=== PATIENT | male | born 1980 | race Caucasian/White ===

== ENCOUNTER 2020-07-24 17:54 | Inpatient (IN) | payer MEDICAID, SELFPAY ==
[2020-07-24] VITALS (7 sets, daily range): BP systolic 94–136; BP diastolic 60–90; PULSE 85–136; RESP 16–28; O2SAT 73–96; BMI 26.6
--- NOTE | ~2020-07-24 | XR_ITS ---
EXAMINATION: XR CHEST CLINICAL INFORMATION: Shortness of breath with overdose COMPARISON: None TECHNIQUE: Frontal view of the chest was obtained. FINDINGS: A large area of consolidation is noted in the right upper lobe. No pleural effusions are seen. Some right basilar atelectasis may be present. The left lung is clear. The heart size is normal. XR/XR chest 1V IMPRESSION: Large area of consolidation present in the right upper lobe. This could be due to pneumonia or possibly aspiration.
--- NOTE | ~2020-07-24 | XR_ITS ---
EXAMINATION: XR BILATERAL HIPS WITH AP PELVIS CLINICAL INFORMATION: Pain COMPARISON: None TECHNIQUE: AP view of the pelvis and 2 views of each hip were obtained. FINDINGS: Bone alignment is normal. No fracture or dislocation is seen. The joint spaces are normal. Bones of the pelvis are normal. Soft tissues are normal. XR/XR hip BI w [id number] IMPRESSION: Unremarkable exam.
--- NOTE | 2020-07-24 18:12 | ED_ITS ---
HPI - Overdose General Chief Complaint: Overdose Stated Complaint: 0D Time Seen by Provider: 07/24/20 18:12 Source: EMS Mode of arrival: EMS Limitations: altered mental status History of Present Illness HPI Narrative: Patient was brought by EMS for overdose on heroin and other drugs was not breathing at scene bystander gave him 8 mg of Narcan intranasally EMS reached patient was cyanotic saturating 60% was given another 2 mg intranasally Narcan patient came here saturating 85% on 100% non-rebreather dozing off with shallow respiration ' , responded to 4 mg IV Narcan complaint: accidental overdose Onset (ago): minute(s) How Overdose Was Discovered: family/friend present at time Context: Accidental Overdose: wanted to get high Related Data Home Medications Medication Instructions Recorded Confirmed Unobtainable 07/24/20 07/24/20 Allergies Allergy/AdvReac Type Severity Reaction Status Date / Time No Known Allergies Allergy Verified 07/24/20 18:13 Review of Systems Review of Systems: Yes Unobtainable due to mental status Neurologic: Reports confusion Psychiatric: Psychiatric: Reports confusion [facility] Past Medical History Source: unable to obtain Social History Social History Advance Directives: No Advance Directives Information Provided: Yes Physical Exam Vital Signs: Vital Signs: Last Vital Signs Pulse 85 07/24/20 23:55 Resp 22 H 07/24/20 23:55 BP 95/67 07/24/20 23:55 Pulse Ox 93 07/24/20 23:55 Body Mass Index 26.6 Const: General: confusion, intoxicated appearing and lethargic [place] ation/consciousness: confusion and lethargic HENMT: Head: Yes normocephalic and Yes atraumatic Eyes: General: appearance normal, both eyes and all related structures Conjunctivae: conjunctivae normal Sclerae: sclerae normal Pupils: Pupil size comments (2 mm) bilaterally EOM: EOMs intact bilaterally Neck: Neck: Yes normal visual inspection, Yes full ROM and No midline deformity Chest: Chest palpation & inspection: normal inspection of the chest and normal palpation of entire chest wall Resp: Effort & Inspection: decreased respiratory effort Auscultation: clear to auscultation bilaterally Cardio: Jugular venous distension: no JVD Palpation: normal PMI Rate: regular rate Rhythm: regular rhythm Heart sounds: S1 normal heart sound present and S2 normal heart sound present Peripheral pulses: Peripheral pulses 2+ throughout GI: Inspection: Yes normal to inspection Palpation (GI): Soft to palpation and nontender Auscultation: normal bowel sounds : General: Yes no CVA tenderness Back/Spine/Pelvis: Back: no CVA tenderness Thoracic/Lumbar Spine: thoracic and lumbar spine normal to inspection Skin: General skin exam: no rashes or lesions noted Neuro: General: moves all extremities, no focal motor deficits and confusion Extrem: General: Yes normal to inspection, Yes no calf tenderness and No pedal edema MDM - Overdose MDM Narrative Medical decision making narrative: 1899: Patient more alert awake saturating 88% on 4 L chest x-ray showed right upper lobe consolidation likely aspiration.. On further interrogation patient said patient was in shelter for 5 months came out and today he took only 2 bags of heroin not any methadone did not take any other medication or drugs no fever or cough prior . Will admit patient for IV antibiotics patient's elevated troponin without any chest pain or EKG changes likely from renal failure and hypoxia Medical Records Attestation: I reviewed the patient's medical records. Lab Data Attestation: I reviewed the patient's lab results. Result diagrams: 07/24/20 19:02 07/24/20 22:57 Labs: Lab Results 07/24/20 07/24/20 07/24/20 Range/Units 19:02 19:02 19:02 WBC 22.7 H (4.8-10.8) X10*3/uL RBC 6.41 H (4.60-5.80) X10*6/uL Hgb 16.6 (14.0-18.0) g/dl Hct 54.2 H (42-52) % MCV 84.6 (80-98) fL MCH 25.9 L (27.0-33.0) pg MCHC 30.6 L (31.0-36.0) g/dl RDW 13.8 (11.0-16.0) % Plt Count 167 (160-400) X10*3/uL MPV 12.1 (9.4-12.4) fL Immature Gran % (Auto) Cancelled Neut % (Auto) Cancelled Lymph % (Auto) Cancelled Haines % (Auto) Cancelled Eos % (Auto) Cancelled Baso % (Auto) Cancelled Lymph # (Auto) Cancelled Haines # (Auto) Cancelled Eos # (Auto) Cancelled Baso # (Auto) Cancelled Abs Immat Gran (auto) Cancelled Absolute Neuts (auto) Cancelled Absolute Nucleated RBC 0.000 (0.0-0.012) X10*3/uL Nucleated RBC % (auto) 0.0 (0.0-0.2) /100WBC Neutrophils % (Manual) 70 (45-73) % Band Neutrophils % 12 H (3-5) % Lymphocytes % (Manual) 8 L (20-40) % Monocytes % (Manual) 6 (2-11) % Metamyelocytes % 4 % Abs Neuts (Manual) 18.6 H (2.2-7.9) X10*3/uL Lymphocytes # (Manual) 1.8 (0.6-4.8) X10*3/uL Monocytes # (Manual) 1.4 H (0.0-1.2) X10*3/uL Metamyelocytes # 0.9 X10*3/uL Platelet Estimate NORMAL (NORMAL) Plt Morphology Comment NORMAL RBC Morphology NORMAL PT 12.2 (10.8-13.0) SEC INR 1.0 (0.9-1.1) Sodium 144 (135-145) mmol/L Potassium 4.4 (3.3-5.1) mmol/L Chloride 106 (96-108) mmol/L Carbon Dioxide 16 L (22-29) mmol/L Anion Gap 26 H (12-20) BUN 18 H (9-16) mg/dL Creatinine 2.57 H (0.5-1.4) mg/dL Estim Creat Clear Calc 36.4 Estimated GFR 28 Random Glucose 102 (60-115) mg/dL Lactic Acid (0.5-2.0) mmol/L Calcium 9.2 (8.4-10.2) mg/dL Total Bilirubin 0.4 (0.0-1.0) mg/dL Direct Bilirubin 0.2 (0.0-0.5) mg/dL AST 58 H (5-37) U/L ALT 25 (0-40) U/L Alkaline Phosphatase 92 (39-117) U/L Troponin I High Sens (<3.5-35.0) ng/L Total Protein 8.1 H (6.5-8.0) g/dL Albumin 4.9 (3.5-5.0) g/dL Salicylates (15-30) mg/dL Acetaminophen (<30) mcg/mL Ethyl Alcohol mg/dL COVID-19 ([facility]) (Negative) COVID-19 Clin Com 07/24/20 07/24/20 07/24/20 Range/Units 19:02 19:02 19:02 WBC (4.8-10.8) X10*3/uL RBC (4.60-5.80) X10*6/uL Hgb (14.0-18.0) g/dl Hct (42-52) % MCV (80-98) fL MCH (27.0-33.0) pg MCHC (31.0-36.0) g/dl RDW (11.0-16.0) % Plt Count (160-400) X10*3/uL MPV (9.4-12.4) fL Immature Gran % (Auto) Neut % (Auto) Lymph % (Auto) Haines % (Auto) Eos % (Auto) Baso % (Auto) Lymph # (Auto) Haines # (Auto) Eos # (Auto) Baso # (Auto) Abs Immat Gran (auto) Absolute Neuts (auto) Absolute Nucleated RBC (0.0-0.012) X10*3/uL Nucleated RBC % (auto) (0.0-0.2) /100WBC Neutrophils % (Manual) (45-73) % Band Neutrophils % (3-5) % Lymphocytes % (Manual) (20-40) % Monocytes % (Manual) (2-11) % Metamyelocytes % % Abs Neuts (Manual) (2.2-7.9) X10*3/uL Lymphocytes # (Manual) (0.6-4.8) X10*3/uL Monocytes # (Manual) (0.0-1.2) X10*3/uL Metamyelocytes # X10*3/uL Platelet Estimate (NORMAL) Plt Morphology Comment RBC Morphology PT (10.8-13.0) SEC INR (0.9-1.1) Sodium (135-145) mmol/L Potassium (3.3-5.1) mmol/L Chloride (96-108) mmol/L Carbon Dioxide (22-29) mmol/L Anion Gap (12-20) BUN (9-16) mg/dL Creatinine (0.5-1.4) mg/dL Estim Creat Clear Calc Estimated GFR Random Glucose (60-115) mg/dL Lactic Acid (0.5-2.0) mmol/L Calcium (8.4-10.2) mg/dL Total Bilirubin (0.0-1.0) mg/dL Direct Bilirubin (0.0-0.5) mg/dL AST (5-37) U/L ALT (0-40) U/L Alkaline Phosphatase (39-117) U/L Troponin I High Sens 62.5 H (<3.5-35.0) ng/L Total Protein (6.5-8.0) g/dL Albumin (3.5-5.0) g/dL Salicylates < 5.0 L (15-30) mg/dL Acetaminophen < 1 (<30) mcg/mL Ethyl Alcohol < 10 mg/dL COVID-19 ([facility]) (Negative) COVID-19 Clin Com 07/24/20 07/24/20 Range/Units 19:39 20:22 WBC (4.8-10.8) X10*3/uL RBC (4.60-5.80) X10*6/uL Hgb (14.0-18.0) g/dl Hct (42-52) % MCV (80-98) fL MCH (27.0-33.0) pg MCHC (31.0-36.0) g/dl RDW (11.0-16.0) % Plt Count (160-400) X10*3/uL MPV (9.4-12.4) fL Immature Gran % (Auto) Neut % (Auto) Lymph % (Auto) Haines % (Auto) Eos % (Auto) Baso % (Auto) Lymph # (Auto) Haines # (Auto) Eos # (Auto) Baso # (Auto) Abs Immat Gran (auto) Absolute Neuts (auto) Absolute Nucleated RBC (0.0-0.012) X10*3/uL Nucleated RBC % (auto) (0.0-0.2) /100WBC Neutrophils % (Manual) (45-73) % Band Neutrophils % (3-5) % Lymphocytes % (Manual) (20-40) % Monocytes % (Manual) (2-11) % Metamyelocytes % % Abs Neuts (Manual) (2.2-7.9) X10*3/uL Lymphocytes # (Manual) (0.6-4.8) X10*3/uL Monocytes # (Manual) (0.0-1.2) X10*3/uL Metamyelocytes # X10*3/uL Platelet Estimate (NORMAL) Plt Morphology Comment RBC Morphology PT (10.8-13.0) SEC INR (0.9-1.1) Sodium (135-145) mmol/L Potassium (3.3-5.1) mmol/L Chloride (96-108) mmol/L Carbon Dioxide (22-29) mmol/L Anion Gap (12-20) BUN (9-16) mg/dL Creatinine (0.5-1.4) mg/dL Estim Creat Clear Calc Estimated GFR Random Glucose (60-115) mg/dL Lactic Acid 3.0 H* (0.5-2.0) mmol/L Calcium (8.4-10.2) mg/dL Total Bilirubin (0.0-1.0) mg/dL Direct Bilirubin (0.0-0.5) mg/dL AST (5-37) U/L ALT (0-40) U/L Alkaline Phosphatase (39-117) U/L Troponin I High Sens (<3.5-35.0) ng/L Total Protein (6.5-8.0) g/dL Albumin (3.5-5.0) g/dL Salicylates (15-30) mg/dL Acetaminophen (<30) mcg/mL Ethyl Alcohol mg/dL COVID-19 ([facility]) Negative (Negative) COVID-19 Clin Com See Note ECG Data Attestation: I personally reviewed and interpreted this ECG as follows: Interpretation: Sinus tachycardia heart rate 111 beats per minute early repolarization changes normal intervals normal axis no acute ischemia Discharge Plan Discharge Clinical Impression: Accidental heroin overdose Qualifiers: Encounter type: initial encounter Qualified Code(s): T40.1X1A - Poisoning by heroin, accidental (unintentional), initial encounter Pneumonia Qualifiers: Pneumonia type: aspiration pneumonia Aspiration pneumonia type: unspecified Laterality: right Lung location: upper lobe of lung Qualified Code(s): J69.0 - Pneumonitis due to inhalation of food and vomit Acute renal failure Qualifiers: Acute renal failure type: with acute tubular necrosis Qualified Code(s): N17.0 - Acute kidney failure with tubular necrosis Patient Disposition: Admitted As Inpatient
--- NOTE | 2020-07-24 18:13 | ECG_ITS ---
Test Reason : OVERDOSE Blood Pressure : / mmHG Vent. Rate : 111 BPM Atrial Rate : 111 BPM P-R Int : 138 ms QRS Dur : 090 ms QT Int : 350 ms P-R-T Axes : 069 071 060 degrees QTc Int : 476 ms Sinus tachycardia Early repolarization Otherwise normal ECG No previous ECGs available Referred By: Nick Melendez Electronically Signed By:BARBARA GARCIAS MD
[2020-07-24] MEDS: Naloxone HCl 2 MG/2 ML SYRINGE 4 MG IVPUSH (18:27)
[2020-07-24] MEDS: 0.9 % Sodium Chloride 1,000 ML 999 ML IVCONT ×3 (18:27→21:31)
--- NOTE | 2020-07-24 18:49 | PC.NURSE ---
technical solutions engineer at bedside for labs and EKG.
[2020-07-24 19:08] LABS: Hematocrit 54.2 % (42-52); Hemoglobin 16.6 g/dl (14.0-18.0); Mean Corpuscular HGB Conc 30.6 g/dl (31.0-36.0); Mean Corpuscular Hemoglobin 25.9 pg (27.0-33.0); Mean Corpuscular Volume 84.6 fL (80-98); Mean Platelet Volume 12.1 fL (9.4-12.4); Platelet Count 167 X10*3/uL (160-400); Red Blood Count 6.41 X10*6/uL (4.60-5.80); Red Cell Distribution Width 13.8 % (11.0-16.0)
[2020-07-24 19:10] LABS: WBC ABN SCTR FOR CBC 1
[2020-07-24 19:18] LABS: Prothrombin Time 12.2 SEC (10.8-13.0)
[2020-07-24 19:34] LABS: Ethanol < 10 mg/dL
[2020-07-24 19:37] LABS: Acetaminophen LAB < 1 mcg/mL (<30); Salicylate < 5.0 mg/dL (15-30)
--- NOTE | 2020-07-24 19:43 | MHC.RECOVSUP ---
Reason for consult: Overdose o Current location: ED 10 o Identified substance use concern: Opioid - Overdose <del>-</del> <del>Withdrawal</del> <del>-</del> <del>Seeking</del> <del>ATS</del> <del>(detox)</del> - Support ? Intervention: <del>o</del> <del>ATS</del> <del>bed</del> <del>search</del> <del>started/completed/in</del> <del>process</del> <del>o</del> <del>MAT</del> <del>started</del> <del>or</del> <del>to</del> <del>be</del> <del>started</del> o Community resources provided o Harm reduction discussion ? Plan: <del>o</del> <del>Referral</del> <del>to</del> <del>[facility]]</del> <del>o</del> <del>Bed</del> <del>search</del> <del>in</del> <del>progress</del> <del>to</del> <del>o</del> <del>Follow</del> <del>up</del> <del>tomorrow</del> <del>o</del> <del>Patient</del> <del>awaiting</del> <del>crisis</del> <del>evaluation</del> o Patient to follow up with [facility] after discharge ? Additional information: pt came in due to a heroin overdose. pt stated that today was the first time that he used after 5 months. when asked how he was able to maintain 5 months, pt stated that he was incarcerated. pt stated that he used 2 bags and overdosed here in [place]. pt is currently living with a friend and continues to face challenges with maintaining housing. he also stated that he is not on MAT and according to pt, does not have a history of mental health.I was not able to further engage in conversation with pt because he is currently in pain. pt was also told that he will admitted tonight.
[2020-07-24 19:45] LABS: Alanine Aminotransferase 25 U/L (0-40); Albumin Level 4.9 g/dL (3.5-5.0); Alkaline Phosphatase 92 U/L (39-117); Anion Gap 26 (12-20); Aspartate Amino Transferase 58 U/L (5-37); Bilirubin Direct 0.2 mg/dL (0.0-0.5); Bilirubin Total 0.4 mg/dL (0.0-1.0); Blood Urea Nitrogen 18 mg/dL (9-16); Calcium 9.2 mg/dL (8.4-10.2); Carbon Dioxide 16 mmol/L (22-29); Chloride 106 mmol/L (96-108); Creatinine Clr Calc Pharmacy 36.4; Estimated Glomerular Filt Rate 28; Glucose Random 102 mg/dL (60-115); Potassium 4.4 mmol/L (3.3-5.1); Sodium 144 mmol/L (135-145); Total Protein 8.1 g/dL (6.5-8.0)
[2020-07-24 19:50] LABS: Troponin-I High Sensitivity 62.5 ng/L (<3.5-35.0)
--- NOTE | 2020-07-24 19:53 | PC.NURSE ---
Pt desatting to 85% while on a NC @ 6 lpm. Pt switched to a NRB @ 15 lpm. O2 sat increased to 90%. Continue to monitor.
[2020-07-24 20:02] LABS: COVID-19 Test Negative (Negative)
[2020-07-24 20:04] LABS: Band Neutrophils Percent 12 % (3-5); Lymphocytes Percent Manual 8 % (20-40); Metamyelocytes Percent 4 %; Monocytes Percent Manual 6 % (2-11); Neutrophils Percent Manual 70 % (45-73)
[2020-07-24 20:06] LABS: RBC Morphology NORMAL
[2020-07-24 20:07] LABS: Platelet Estimate NORMAL (NORMAL); Platelet Morphology Comment NORMAL
[2020-07-24 20:08] LABS: Lymphocytes Absolute Manual 1.8 X10*3/uL (0.6-4.8); Metamyelocytes Absolute 0.9 X10*3/uL; Monocytes Absolute Manual 1.4 X10*3/uL (0.0-1.2); Neutrophils Absolute Manual 18.6 X10*3/uL (2.2-7.9); White Blood Count 22.7 X10*3/uL (4.8-10.8)
[2020-07-24] MEDS: Piperacillin Sodium/Tazobactam 3.375 GM in 0.9 % Sodium Chloride 50 ML IV (20:27)
--- NOTE | 2020-07-24 20:30 | PC.NURSE ---
BCX x 2 and lactic obtained and sent. Pt medicated per MAR with IVF and Zosyn. Continue to monitor.
--- NOTE | 2020-07-24 21:11 | PC.NURSE ---
Per MD, to repeat blood work @ 2330 including lactic, trop and BNP. VSS at this time, pt requesting juice. Pt remains on a NRB with an O2 sat of 92-93%. Plan for admission, continue to monitor.
--- NOTE | 2020-07-24 22:15 | PC.NURSE ---
Unable to complete Med Rec due to AMS.
[2020-07-24] MEDS: Lactated Ringers 1,000 ML 100 ML IVCONT (22:27)
[2020-07-24] MEDS: Enoxaparin Sodium 40 MG/0.4 ML SYRINGE SUBCUT (22:35)
[2020-07-24 22:42] LABS: Reflex Lactate? Lactic Acid Added
--- NOTE | 2020-07-24 22:48 | PC.NURSE ---
polysomnograph tech at bedside to obtain repeat labs. UA obtained, urine noted to be MD ambar aware. Continue to monitor.
--- NOTE | 2020-07-24 23:03 | PM.IMHP ---
History of Present Illness Date of Service: 07/24/20 Chief Complaint: overdose 39-year-old male with past medical history of heroin abuse who presents to the hospital after being found by a bystander not breathing. He was given a mg of Narcan nasally by EMS, and found to be hypoxic satting 60% on ambient air, room urine another 2 mg of Narcan nasally, and obtained for consciousness. Brought into the ED, remained hypoxic, on non-rebreather satting 95%. Patient is somnolent but arousable, does not remember what happened to him but recalls that he took 2 bags of heroin. Apparently he just recently came out of [facility] and relapsed to using IV drugs. Currently denies any chest pain, abdominal came a nausea vomiting, no diarrhea constipation, no urinary symptoms and no lower extremity edema. No headache. On arrival to the ED vitals were significant for heart rate of 127, respiratory rate of 16, blood pressure 95/68, satting 73% on room air. Patient was placed on 6 L of oxygen satting 87% switched to non-rebreather and currently satting 98%. Labs are significant for 22.7, hemoglobin of 16.6, sodium of 141, potassium 4.8, chloride of 111, BUN of 19, creatinine of 2.57 with a baseline around 1.1 from 2019, lactic acid of 3.0, high sensitivity troponin of 62.5 on repeat 195.1, For blood and RBC, UDS positive for opiates cocaine and marijuana, chest x-ray shows large area of consolidation present in the right upper lobe. Patient will be admitted for further management, unable to obtain past medical history from him as he is very somnolent and is wants to go back to sleep PMFSH Social History Household Members: Friend(s) Housing: Apartment Do you presently have visiting nurse or other home services: No Smoking Status: Current every day smoker Tobacco Type: Cigarette Smoked in Last 30 Days: Yes Patient Interested in Nicotine Replacement: No Patient Given Instructions on How to Stop Smoking: No Second Hand Smoke Exposure: Yes Use of substances other than those prescribed or required for medical reasons: Yes Substance Use Type: Marijuana Substance Use Frequency: Daily Last Used Substance: Just Prior to Admission Currently Displaying Signs/Symptoms of Drug Intoxication Withdrawal: No Any prior treatment program specific to substance use: No Have you been hit, kicked, punched, or otherwise hurt by someone within the past year? If so, by whom?: No Do you feel safe in your current relationship?: Yes Is there a partner from a previous relationship who is making you feel unsafe now?: No Are you made to feel afraid or neglected: No [facility]: [facility] Advance Directives: No Advance Directives Information Provided: Yes Do you have thoughts of harming others: None Do you have a plan to hurt others: No Plan Recently lost weight without trying: No Meds Allergies Allergy/AdvReac Type Severity Reaction Status Date / Time No Known Allergies Allergy Verified 07/24/20 18:13 Active Medications: Current Medications Generic Name Dose Route Start Last Admin Trade Name Freq PRN Reason Stop Dose Admin Acetaminophen 650 mg 07/24/20 22:09 Acetaminophen 325 Mg Tablet PO Q6H PRN Pain, Mild (Pain Scale 1-3) Enoxaparin Sodium 40 mg 07/24/20 22:00 07/24/20 22:35 Enoxaparin Sodium 40 Mg/0.4 Ml Syringe SUBCUT 40 mg Q24H JONI Administration Ampicillin Sodium/Sulbactam 100 mls @ 200 mls/hr 07/25/20 02:00 Sodium 3 gm/ Sodium Chloride IV Q8H JONI Lactated Ringer's 1,000 mls @ 100 mls/hr 07/24/20 22:09 07/24/20 22:27 Lr IVCONT 100 mls/hr .Q10H JONI Administration Ondansetron HCl 4 mg 07/24/20 22:09 Ondansetron Hcl 4 Mg/2 Ml Vial IVPUSH Q8H PRN Nausea and Vomiting Sodium Chloride 3 ml 07/25/20 00:00 07/24/20 23:01 0.9 % Sodium Chloride Flush 3 Ml Syringe IVFLUSH Not Given QSHIFT [facility] Home Medications Medication Instructions Recorded Confirmed Last Taken Type Unobtainable 07/24/20 07/24/20 Unknown History Physical Exam Vital Signs and Narrative: Vital Signs: Last Vital Signs Pulse 98 07/24/20 21:09 Resp 24 H 07/24/20 21:09 BP 97/70 07/24/20 21:09 Pulse Ox 92 07/24/20 21:09 Body Mass Index 26.6 Const: Other: Somnolent but arousable General: no acute distress, poor hygiene and tired appearing Orientation/consciousness: patient oriented x3 Eyes: General: appearance normal, both eyes and all related structures Resp: Effort & Inspection: normal respiratory effort and able to speak in complete sentences Cardio: Rate: regular rate Rhythm: regular rhythm GI: Palpation (GI): Soft to palpation Auscultation: normal bowel sounds Skin: General skin exam: no rashes or lesions noted Neuro: General: patient oriented x3 Cognition (Neuro): normal cognition Extrem: General: Yes normal to inspection and Yes no pedal edema Results Labs CBC and Chem 7: 07/24/20 19:02 07/24/20 22:57 Labs: Laboratory Results - last 24 hr 07/24/20 07/24/20 07/24/20 19:02 19:02 19:02 MCV 84.6 MCH 25.9 L MCHC 30.6 L RDW 13.8 Plt Count 167 MPV 12.1 Immature Gran % (Auto) Cancelled Neut % (Auto) Cancelled Lymph % (Auto) Cancelled [place] % (Auto) Cancelled Eos % (Auto) Cancelled Baso % (Auto) Cancelled Lymph # (Auto) Cancelled [place] # (Auto) Cancelled Eos # (Auto) Cancelled Baso # (Auto) Cancelled Abs Immat Gran (auto) Cancelled Absolute Neuts (auto) Cancelled Absolute Nucleated RBC 0.000 Nucleated RBC % (auto) 0.0 Neutrophils % (Manual) 70 Band Neutrophils % 12 H Lymphocytes % (Manual) 8 L Monocytes % (Manual) 6 Metamyelocytes % 4 Abs Neuts (Manual) 18.6 H Lymphocytes # (Manual) 1.8 Monocytes # (Manual) 1.4 H Metamyelocytes # 0.9 Platelet Estimate NORMAL Plt Morphology Comment NORMAL RBC Morphology NORMAL PT 12.2 INR 1.0 Anion Gap 26 H Estim Creat Clear Calc 36.4 Estimated GFR 28 Random Glucose 102 Lactic Acid Calcium 9.2 Total Bilirubin 0.4 Direct Bilirubin 0.2 AST 58 H ALT 25 Alkaline Phosphatase 92 Troponin I High Sens Total Protein 8.1 H Albumin 4.9 Salicylates Acetaminophen Ethyl Alcohol COVID-19 ([facility]) COVID-19 Clin Com 07/24/20 07/24/20 07/24/20 19:02 19:02 19:02 MCV MCH MCHC RDW Plt Count MPV Immature Gran % (Auto) Neut % (Auto) Lymph % (Auto) [place] % (Auto) Eos % (Auto) Baso % (Auto) Lymph # (Auto) [place] # (Auto) Eos # (Auto) Baso # (Auto) Abs Immat Gran (auto) Absolute Neuts (auto) Absolute Nucleated RBC Nucleated RBC % (auto) Neutrophils % (Manual) Band Neutrophils % Lymphocytes % (Manual) Monocytes % (Manual) Metamyelocytes % Abs Neuts (Manual) Lymphocytes # (Manual) Monocytes # (Manual) Metamyelocytes # Platelet Estimate Plt Morphology Comment RBC Morphology PT INR Anion Gap Estim Creat Clear Calc Estimated GFR Random Glucose Lactic Acid Calcium Total Bilirubin Direct Bilirubin AST ALT Alkaline Phosphatase Troponin I High Sens 62.5 H Total Protein Albumin Salicylates < 5.0 L Acetaminophen < 1 Ethyl Alcohol < 10 COVID-19 ([facility]) COVID-19 [employer] 07/24/20 07/24/20 19:39 20:22 MCV MCH MCHC RDW Plt Count MPV Immature Gran % (Auto) Neut % (Auto) Lymph % (Auto) [place] % (Auto) Eos % (Auto) Baso % (Auto) Lymph # (Auto) [place] # (Auto) Eos # (Auto) Baso # (Auto) Abs Immat Gran (auto) Absolute Neuts (auto) Absolute Nucleated RBC Nucleated RBC % (auto) Neutrophils % (Manual) Band Neutrophils % Lymphocytes % (Manual) Monocytes % (Manual) Metamyelocytes % Abs Neuts (Manual) Lymphocytes # (Manual) Monocytes # (Manual) Metamyelocytes # Platelet Estimate Plt Morphology Comment RBC Morphology PT INR Anion Gap Estim Creat Clear Calc Estimated GFR Random Glucose Lactic Acid 3.0 H* Calcium Total Bilirubin Direct Bilirubin AST ALT Alkaline Phosphatase Troponin I High Sens Total Protein Albumin Salicylates Acetaminophen Ethyl Alcohol COVID-19 ([facility]) Negative COVID-19 Clin Com See Note Imaging Radiologist's Impressions: Impressions Chest X-Ray 07/24/20 18:13 IMPRESSION: Large area of consolidation present in the right upper lobe. This could be due to pneumonia or possibly aspiration. Assessment and Plan (1) Accidental heroin overdose: Qualifiers: Encounter type: initial encounter Qualified Code(s): T40.1X1A - Poisoning by heroin, accidental (unintentional), initial encounter Status: Acute (2) Pneumonia: Qualifiers: Aspiration pneumonia type: unspecified Laterality: right Lung location: upper lobe of lung Pneumonia type: aspiration pneumonia Qualified Code(s): J69.0 - Pneumonitis due to inhalation of food and vomit Status: Acute (3) Acute renal failure: Qualifiers: Acute renal failure type: with acute tubular necrosis Qualified Code(s): N17.0 - Acute kidney failure with tubular necrosis Status: Acute (4) Elevated troponin: Status: Acute (5) Acute respiratory failure with hypoxia: Status: Acute This is a 39-year-old male with no significant past medical history who presents to hospital after overdosing on heroin found to have hypoxia. # acute hypoxic respiratory failure - most likely secondary to aspiration pneumonia - maintaining sats on non-rebreather - chest x-ray showing large area of consolidation right upper lobe - has leukocytosis, tachycardia Plan: - will start him on Unasyn - follow cultures - O2 as required, titrate as tolerated # pneumonia - most likely aspiration versus community-acquired less likely - large consolidation and chest x-ray - will start patient on Unasyn, follow blood cultures, O2 supplement as required # heroin overdose - reports that his 1st prolapse in 3 months - will monitor for withdrawal symptoms - p.r.n. supportive measures # elevated troponin - denies any chest pain, - no evidence of EKG changes - possibly secondary to cocaine abuse as cocaine was positive in his UDS - will follow serial troponins # BOBY - improved with IV fluids - continue fluids - follow BMP DVT prophylaxis: Lovenox
--- NOTE | 2020-07-24 23:23 | PC.NURSE ---
attempted to call report to [facility]- was told nurse would call back
[2020-07-24 23:28] LABS: Anion Gap 15 (12-20); Blood Urea Nitrogen 19 mg/dL (9-16); Calcium 7.4 mg/dL (8.4-10.2); Carbon Dioxide 20 mmol/L (22-29); Chloride 111 mmol/L (96-108); Estimated Glomerular Filt Rate 39; Glucose Random 68 mg/dL (60-115); Potassium 4.8 mmol/L (3.3-5.1); Sodium 141 mmol/L (135-145)
[2020-07-24 23:30] LABS: ~Lactic Acid-LAB USE ONLY 2.1 mmol/L (0.5-2.0)
[2020-07-24 23:38] LABS: Troponin-I High Sensitivity 195.1 ng/L (<3.5-35.0)
--- NOTE | 2020-07-24 23:57 | PC.NURSE ---
UA obtained and sent. school laboratory technician at bedside preparing for transport to floor.
[2020-07-25] VITALS (7 sets, daily range): BP systolic 112–151; BP diastolic 65–94; PULSE 58–85; RESP 16–20; TEMP 36.7–37.3; O2SAT 90–98
[2020-07-25 00:03] LABS: Glucose Urine UA NEG (NEG); Leukocyte Esterase Urine NEG (NEG); Nitrite Urine NEG (NEG); Specific Gravity - Urine >= 1.030 (1.005-1.025); Urine Blood 3+ (NEG); Urine Ketones NEG (NEG); Urine Protein 2+ MG/DL (NEG-TRACE)
[2020-07-25 00:04] LABS: Appearance Urine HAZY; Color Urine BROWN
[2020-07-25 00:20] LABS: Squamous Epithelial Cell Urine TRACE /LPF
[2020-07-25 00:24] LABS: Hyaline Casts Urine 0-2 /LPF; Other Crystals Urine 3+ /LPF
[2020-07-25 00:28] LABS: Amphetamine Screen Urine Not Detected (Not Detect); Barbiturates, Urine Not Detected (Not Detect); Benzodiazepines Screen Urine Not Detected (Not Detect); Cannabinoid Screen Urine POSITIVE (Not Detect); Cocaine Screen Urine POSITIVE (Not Detect); Opiate Screen Urine POSITIVE (Not Detect); Phencyclidine Screen Urine Not Detected (Not Detect)
[2020-07-25 01:04] LABS: Reflex Lactate? 2 Y
[2020-07-25] MEDS: Ampicillin Sodium/Sulbactam Na 3 GM in 0.9 % Sodium Chloride 100 ML IV ×3 (01:06→18:26)
[2020-07-25 01:53] LABS: ~Lactic Acid-LAB USE ONLY 2.1 mmol/L (0.5-2.0)
[2020-07-25 06:31] LABS: MANUAL DIFF FLAG NO
[2020-07-25 06:36] LABS: Basophils Percent Auto 0.2 % (0-2); Eosinophils Absolute Auto 0.1 X10*3/uL (0.0-0.4); Eosinophils Percent Auto 0.6 % (0-4); Hematocrit 42.4 % (42-52); Hemoglobin 13.3 g/dl (14.0-18.0); Imm Gran Abs Auto 0.11 X10*3/uL (0.00-0.03); Imm Gran Pct Auto 0.6 % (0.0-0.4); Lymphocytes Absolute Auto 1.8 X10*3/uL (1.2-4.9); Mean Corpuscular HGB Conc 31.4 g/dl (31.0-36.0); Mean Corpuscular Hemoglobin 25.6 pg (27.0-33.0); Mean Corpuscular Volume 81.5 fL (80-98); Mean Platelet Volume 12.5 fL (9.4-12.4); Monocytes Percent Auto 5.5 % (2-11); Neutrophils Absolute Auto 15.1 X10*3/uL (2.0-8.3); Neutrophils Percent Auto 83.1 % (45-73); Platelet Count 184 X10*3/uL (160-400); Red Cell Distribution Width 13.9 % (11.0-16.0); White Blood Count 18.2 X10*3/uL (4.8-10.8)
[2020-07-25 07:18] LABS: Anion Gap 15 (12-20); Blood Urea Nitrogen 21 mg/dL (9-16); Calcium 7.7 mg/dL (8.4-10.2); Carbon Dioxide 20 mmol/L (22-29); Chloride 109 mmol/L (96-108); Creatinine Clr Calc Pharmacy 53.2; Estimated Glomerular Filt Rate 44; Glucose Random 96 mg/dL (60-115); Potassium 4.7 mmol/L (3.3-5.1); Sodium 139 mmol/L (135-145)
[2020-07-25 07:24] LABS: Troponin-I High Sensitivity 212.1 ng/L (<3.5-35.0)
[2020-07-25] MEDS: Aspirin Enteric Coated 81 MG TABLET.DR PO (08:43)
[2020-07-25] MEDS: Lactated Ringers 1,000 ML 100 ML IVCONT (08:44)
[2020-07-25] MEDS: Acetaminophen 325 MG TABLET 650 MG PO ×2 (08:46→14:31)
--- NOTE | 2020-07-25 09:37 | PM.EVENT ---
Event Note Date of Service: 07/25/20 Event Note: 39 YEARS OLD GENTLEMAN, RECOVERING FROM A IV NARCOTIC OVERDOSE. SEEN BY ME THIS MORNING FOR PULMONARY CONSULTATION. COMPLETE NOTE IS DICTATED. A: PNEUMONIA RIGHT UPPER LOBE, MOST LIKELY ASPIRATION PNEUMONIA. P: AGREE WITH THE CURRENT TREATMENT WITH ZOSYN, WEAN OFF OXYGEN HE TOLERATES. WILL REPEAT CHEST X-RAY IN A FEW DAYS FOR FOLLOW-UP.
--- NOTE | 2020-07-25 09:39 | PM.CNCAR ---
History of Present Illness History of Present Illness Date of Service: 07/25/20 Requesting physician: Bryant Foley Consult reason: troponin elevation Chief complaint: PNA, Hypoxic resp failure Narrative: We were asked to see Nicole in cardiology consultation today for elevated troponin. He is a 39-year-old man who was found by a bystander with loss of consciousness, EMS was called. They gave him Narcan and subsequently was noted to be severely hypoxemic and brought to the hospital. Continues to require high level oxygen remained hypoxic in the emergency room for some time. This is secondary to heroin overdose and subsequently has a large right upper lobe infiltrative process suspected for aspiration pneumonia. He is currently on high level oxygen and maintaining oxygen saturation. However troponins were drawn which were elevated and a rising. These are suggestive of myocardial injury related to either acidosis or significant hypoxia. He has no chest pain. He however also uses cocaine. His chance for cocaine induced myocardial injury as well. Patient denies any chest pain currently. Denies shortness of breath. Does not know what happened to him. However he knows that he did abuse cocaine and heroin. Denies palpitations. EKG shows sinus tachycardia with early repolarization Review of Systems Constitutional: Constitutional: Reports no additional constitutional complaints Cardiovascular: Cardiovascular: Reports no additional cardiovascular complaints and Reports dyspnea Respiratory: Respiratory: Reports dyspnea Gastrointestinal: Gastrointestinal: Reports no additional gastrointestinal complaints Genitourinary: Genitourinary: Reports no additional male genitourinary complaints Musculoskeletal: Musculoskeletal: Reports no additional musculoskeletal complaints Neurologic: Reports system reviewed and no additional complaints, except as documented Psychiatric: Psychiatric: Reports no additional psychiatric complaints Endocrine: Endocrine: Reports no additional endocrine complaints Hematologic/Lymphatic: Hematologic/Lymphatic: Reports no additional hematologic/lymphatic complaints [facility] Social History Social History Household Members: Friend(s) Housing: Apartment Do you presently have visiting nurse or other home services: No Smoking Status: Current every day smoker Tobacco Type: Cigarette Smoked in Last 30 Days: Yes Patient Interested in Nicotine Replacement: No Patient Given Instructions on How to Stop Smoking: No Second Hand Smoke Exposure: Yes Use of substances other than those prescribed or required for medical reasons: Yes Substance Use Type: Marijuana Substance Use Frequency: Daily Last Used Substance: Just Prior to Admission Currently Displaying Signs/Symptoms of Drug Intoxication Withdrawal: No Any prior treatment program specific to substance use: No Have you been hit, kicked, punched, or otherwise hurt by someone within the past year? If so, by whom?: No Do you feel safe in your current relationship?: Yes Is there a partner from a previous relationship who is making you feel unsafe now?: No Are you made to feel afraid or neglected: No Sabianist Healthcare Practices: Ep[employer]op[employer] Advance Directives: No Advance Directives Information Provided: Yes Do you have thoughts of harming others: None Do you have a plan to hurt others: No Plan Recently lost weight without trying: No Meds Allergies Allergy/AdvReac Type Severity Reaction Status Date / Time No Known Allergies Allergy Verified 07/24/20 18:13 Active Medications: Current Medications Generic Name Dose Route Start Last Admin Trade Name Freq PRN Reason Stop Dose Admin Acetaminophen 650 mg 07/24/20 22:09 07/25/20 08:46 Acetaminophen 325 Mg Tablet PO 650 mg Q6H PRN Administration Pain, Mild (Pain Scale 1-3) Aspirin 81 mg 07/25/20 09:00 07/25/20 08:43 Aspirin Enteric Coated 81 Mg Tablet. PO 81 mg DAILY JONI Administration Enoxaparin Sodium 40 mg 07/24/20 22:00 07/24/20 22:35 Enoxaparin Sodium 40 Mg/0.4 Ml Syringe SUBCUT 40 mg Q24H JONI Administration Ampicillin Sodium/Sulbactam 100 mls @ 200 mls/hr 07/25/20 02:00 07/25/20 09:37 Sodium 3 gm/ Sodium Chloride IV Infused Q8H JONI Infusion Lactated Ringer's 1,000 mls @ 100 mls/hr 07/24/20 22:09 07/25/20 08:44 Lr IVCONT 100 mls/hr .Q10H JONI Administration Ondansetron HCl 4 mg 07/24/20 22:09 Ondansetron Hcl 4 Mg/2 Ml Vial IVPUSH Q8H PRN Nausea and Vomiting Sodium Chloride 3 ml 07/25/20 00:00 07/25/20 08:45 0.9 % Sodium Chloride Flush 3 Ml Syringe IVFLUSH Not Given QSHIFT [facility] Home Medications Medication Instructions Recorded Confirmed Last Taken Type Unobtainable 07/24/20 07/24/20 Unknown History Physical Exam Vital Signs: Vital Signs: Last Vital Signs Temp 98.0 F 07/25/20 07:45 Pulse 75 07/25/20 07:45 Resp 20 07/25/20 07:45 BP 114/68 07/25/20 07:45 Pulse Ox 96 07/25/20 07:45 Body Mass Index 26.6 Const: General: cooperative, comfortable, alert and awake Nutritional Appearance: average body habitus Orientation/consciousness: patient oriented x3 HENMT: Head: Yes normocephalic and Yes atraumatic Neck: Neck: Yes trachea midline and Yes supple Resp: Effort & Inspection: normal respiratory effort Auscultation: crackles (Coarse crackles in the right upper lobe) Cardio: Jugular venous distension: no JVD Palpation: normal PMI Rate: regular rate Rhythm: regular rhythm Heart sounds: S1 normal heart sound present and S2 normal heart sound present GI: Auscultation: normal bowel sounds Skin: General skin exam: no rashes or lesions noted and other (Extensive tattoo) Neuro: General: patient oriented x3 and no focal motor deficits Extrem: General: Yes no clubbing, cyanosis or edema Psych: Appearance: grossly normal Results Labs and Meds Result diagrams: 07/25/20 05:47 07/25/20 05:47 Lab results: Laboratory Results - last 24 hr 07/24/20 07/24/20 07/24/20 19:02 19:02 19:02 WBC 22.7 H RBC 6.41 H Hgb 16.6 Hct 54.2 H MCV 84.6 MCH 25.9 L MCHC 30.6 L RDW 13.8 Plt Count 167 MPV 12.1 Immature Gran % (Auto) Cancelled Neut % (Auto) Cancelled Lymph % (Auto) Cancelled Perkins % (Auto) Cancelled Eos % (Auto) Cancelled Baso % (Auto) Cancelled Lymph # (Auto) Cancelled Perkins # (Auto) Cancelled Eos # (Auto) Cancelled Baso # (Auto) Cancelled Abs Immat Gran (auto) Cancelled Absolute Neuts (auto) Cancelled Absolute Nucleated RBC 0.000 Nucleated RBC % (auto) 0.0 Neutrophils % (Manual) 70 Band Neutrophils % 12 H Lymphocytes % (Manual) 8 L Monocytes % (Manual) 6 Metamyelocytes % 4 Abs Neuts (Manual) 18.6 H Lymphocytes # (Manual) 1.8 Monocytes # (Manual) 1.4 H Metamyelocytes # 0.9 Platelet Estimate NORMAL Plt Morphology Comment NORMAL RBC Morphology NORMAL PT 12.2 INR 1.0 Sodium 144 Potassium 4.4 Chloride 106 Carbon Dioxide 16 L Anion Gap 26 H BUN 18 H Creatinine 2.57 H Estim Creat Clear Calc 36.4 Estimated GFR 28 Random Glucose 102 Lactic Acid Lactic Acid Fup @ 2Hr Lactic Acid Fup @ 4Hr Calcium 9.2 Total Bilirubin 0.4 Direct Bilirubin 0.2 AST 58 H ALT 25 Alkaline Phosphatase 92 Troponin I High Sens Total Protein 8.1 H Albumin 4.9 Urine Color Urine Appearance Urine pH Ur Specific [place] Urine Protein Urine Glucose (UA) Urine Ketones Urine Blood Urine Nitrite Ur Leukocyte Esterase Urine RBC Urine WBC Ur Squamous Epith Cells Other Crystals Urine Bacteria Hyaline Casts Other Casts Salicylates Urine Opiates Screen Acetaminophen Ur Barbiturates Screen Ur Phencyclidine Scrn Ur Amphetamines Screen U Benzodiazepines Scrn Urine Cocaine Screen U Marijuana (THC) Screen Ethyl Alcohol COVID-19 ([facility]) COVID-19 [email or web address] Com 07/24/20 07/24/20 07/24/20 19:02 19:02 19:02 WBC RBC Hgb Hct MCV MCH MCHC RDW Plt Count MPV Immature Gran % (Auto) Neut % (Auto) Lymph % (Auto) Perkins % (Auto) Eos % (Auto) Baso % (Auto) Lymph # (Auto) Perkins # (Auto) Eos # (Auto) Baso # (Auto) Abs Immat Gran (auto) Absolute Neuts (auto) Absolute Nucleated RBC Nucleated RBC % (auto) Neutrophils % (Manual) Band Neutrophils % Lymphocytes % (Manual) Monocytes % (Manual) Metamyelocytes % Abs Neuts (Manual) Lymphocytes # (Manual) Monocytes # (Manual) Metamyelocytes # Platelet Estimate Plt Morphology Comment RBC Morphology PT INR Sodium Potassium Chloride Carbon Dioxide Anion Gap BUN Creatinine Estim Creat Clear Calc Estimated GFR Random Glucose Lactic Acid Lactic Acid Fup @ 2Hr Lactic Acid Fup @ 4Hr Calcium Total Bilirubin Direct Bilirubin AST ALT Alkaline Phosphatase Troponin I High Sens 62.5 H Total Protein Albumin Urine Color Urine Appearance Urine pH Ur Specific [place] Urine Protein Urine Glucose (UA) Urine Ketones Urine Blood Urine Nitrite Ur Leukocyte Esterase Urine RBC Urine WBC Ur Squamous Epith Cells Other Crystals Urine Bacteria Hyaline Casts Other Casts Salicylates < 5.0 L Urine Opiates Screen Acetaminophen < 1 Ur Barbiturates Screen Ur Phencyclidine Scrn Ur Amphetamines Screen U Benzodiazepines Scrn Urine Cocaine Screen U Marijuana (THC) Screen Ethyl Alcohol < 10 COVID-19 ([facility]) COVID-19 Clin Com 07/24/20 07/24/20 07/24/20 19:39 20:22 22:57 WBC RBC Hgb Hct MCV MCH MCHC RDW Plt Count MPV Immature Gran % (Auto) Neut % (Auto) Lymph % (Auto) Perkins % (Auto) Eos % (Auto) Baso % (Auto) Lymph # (Auto) Perkins # (Auto) Eos # (Auto) Baso # (Auto) Abs Immat Gran (auto) Absolute Neuts (auto) Absolute Nucleated RBC Nucleated RBC % (auto) Neutrophils % (Manual) Band Neutrophils % Lymphocytes % (Manual) Monocytes % (Manual) Metamyelocytes % Abs Neuts (Manual) Lymphocytes # (Manual) Monocytes # (Manual) Metamyelocytes # Platelet Estimate Plt Morphology Comment RBC Morphology PT INR Sodium Potassium Chloride Carbon Dioxide Anion Gap BUN Creatinine Estim Creat Clear Calc Estimated GFR Random Glucose Lactic Acid 3.0 H* Lactic Acid Fup @ 2Hr Lactic Acid Fup @ 4Hr Calcium Total Bilirubin Direct Bilirubin AST ALT Alkaline Phosphatase Troponin I High Sens 195.1 H D Total Protein Albumin Urine Color Urine Appearance Urine pH Ur Specific [place] Urine Protein Urine Glucose (UA) Urine Ketones Urine Blood Urine Nitrite Ur Leukocyte Esterase Urine RBC Urine WBC Ur Squamous Epith Cells Other Crystals Urine Bacteria Hyaline Casts Other Casts Salicylates Urine Opiates Screen Acetaminophen Ur Barbiturates Screen Ur Phencyclidine Scrn Ur Amphetamines Screen U Benzodiazepines Scrn Urine Cocaine Screen U Marijuana (THC) Screen Ethyl Alcohol COVID-19 ([facility]) Negative COVID-19 Clin Com See Note 07/24/20 07/24/20 07/24/20 22:57 22:57 23:54 WBC RBC Hgb Hct MCV MCH MCHC RDW Plt Count MPV Immature Gran % (Auto) Neut % (Auto) Lymph % (Auto) Perkins % (Auto) Eos % (Auto) Baso % (Auto) Lymph # (Auto) Perkins # (Auto) Eos # (Auto) Baso # (Auto) Abs Immat Gran (auto) Absolute Neuts (auto) Absolute Nucleated RBC Nucleated RBC % (auto) Neutrophils % (Manual) Band Neutrophils % Lymphocytes % (Manual) Monocytes % (Manual) Metamyelocytes % Abs Neuts (Manual) Lymphocytes # (Manual) Monocytes # (Manual) Metamyelocytes # Platelet Estimate Plt Morphology Comment RBC Morphology PT INR Sodium 141 Potassium 4.8 Chloride 111 H Carbon Dioxide 20 L Anion Gap 15 BUN 19 H Creatinine 1.95 H Estim Creat Clear Calc 48.0 Estimated GFR 39 Random Glucose 68 Lactic Acid Lactic Acid Fup @ 2Hr 2.1 H* Lactic Acid Fup @ 4Hr Calcium 7.4 L D Total Bilirubin Direct Bilirubin AST ALT Alkaline Phosphatase Troponin I High Sens Total Protein Albumin Urine Color BROWN Urine Appearance HAZY Urine pH 5.0 Ur Specific [place] >= 1.030 H Urine Protein 2+ H Urine Glucose (UA) NEG Urine Ketones NEG Urine Blood 3+ H Urine Nitrite NEG Ur Leukocyte Esterase NEG Urine RBC 5-9 H Urine WBC 1-4 Ur Squamous Epith Cells TRACE Other Crystals 3+ Urine Bacteria NONE Hyaline Casts 0-2 Other Casts 1-4 Salicylates Urine Opiates Screen Acetaminophen Ur Barbiturates Screen Ur Phencyclidine Scrn Ur Amphetamines Screen U Benzodiazepines Scrn Urine Cocaine Screen U Marijuana (THC) Screen Ethyl Alcohol COVID-19 ([facility]) COVID-19 Clin Com 07/24/20 07/25/20 07/25/20 23:54 01:23 05:47 WBC 18.2 H RBC 5.20 Hgb 13.3 L Hct 42.4 D MCV 81.5 MCH 25.6 L MCHC 31.4 RDW 13.9 Plt Count 184 MPV 12.5 H Immature Gran % (Auto) 0.6 H Neut % (Auto) 83.1 H Lymph % (Auto) 10.0 L Perkins % (Auto) 5.5 Eos % (Auto) 0.6 Baso % (Auto) 0.2 Lymph # (Auto) 1.8 Perkins # (Auto) 1.0 Eos # (Auto) 0.1 Baso # (Auto) 0.0 Abs Immat Gran (auto) 0.11 H Absolute Neuts (auto) 15.1 H Absolute Nucleated RBC 0.000 Nucleated RBC % (auto) 0.0 Neutrophils % (Manual) Band Neutrophils % Lymphocytes % (Manual) Monocytes % (Manual) Metamyelocytes % Abs Neuts (Manual) Lymphocytes # (Manual) Monocytes # (Manual) Metamyelocytes # Platelet Estimate Plt Morphology Comment RBC Morphology PT INR Sodium Potassium Chloride Carbon Dioxide Anion Gap BUN Creatinine Estim Creat Clear Calc Estimated GFR Random Glucose Lactic Acid Lactic Acid Fup @ 2Hr Lactic Acid Fup @ 4Hr 2.1 H* Calcium Total Bilirubin Direct Bilirubin AST ALT Alkaline Phosphatase Troponin I High Sens Total Protein Albumin Urine Color Urine Appearance Urine pH Ur Specific [place] Urine Protein Urine Glucose (UA) Urine Ketones Urine Blood Urine Nitrite Ur Leukocyte Esterase Urine RBC Urine WBC Ur Squamous Epith Cells Other Crystals Urine Bacteria Hyaline Casts Other Casts Salicylates Urine Opiates Screen POSITIVE H Acetaminophen Ur Barbiturates Screen Not Detected Ur Phencyclidine Scrn Not Detected Ur Amphetamines Screen Not Detected U Benzodiazepines Scrn Not Detected Urine Cocaine Screen POSITIVE H U Marijuana (THC) Screen POSITIVE H Ethyl Alcohol COVID-19 ([facility]) COVID-19 [employer] 07/25/20 07/25/20 05:47 05:47 WBC RBC Hgb Hct MCV MCH MCHC RDW Plt Count MPV Immature Gran % (Auto) Neut % (Auto) Lymph % (Auto) [place] % (Auto) Eos % (Auto) Baso % (Auto) Lymph # (Auto) [place] # (Auto) Eos # (Auto) Baso # (Auto) Abs Immat Gran (auto) Absolute Neuts (auto) Absolute Nucleated RBC Nucleated RBC % (auto) Neutrophils % (Manual) Band Neutrophils % Lymphocytes % (Manual) Monocytes % (Manual) Metamyelocytes % Abs Neuts (Manual) Lymphocytes # (Manual) Monocytes # (Manual) Metamyelocytes # Platelet Estimate Plt Morphology Comment RBC Morphology PT INR Sodium 139 Potassium 4.7 Chloride 109 H Carbon Dioxide 20 L Anion Gap 15 BUN 21 H Creatinine 1.76 H Estim Creat Clear Calc 53.2 Estimated GFR 44 Random Glucose 96 D Lactic Acid Lactic Acid Fup @ 2Hr Lactic Acid Fup @ 4Hr Calcium 7.7 L Total Bilirubin Direct Bilirubin AST ALT Alkaline Phosphatase Troponin I High Sens 212.1 H Total Protein Albumin Urine Color Urine Appearance Urine pH Ur Specific [place] Urine Protein Urine Glucose (UA) Urine Ketones Urine Blood Urine Nitrite Ur Leukocyte Esterase Urine RBC Urine WBC Ur Squamous Epith Cells Other Crystals Urine Bacteria Hyaline Casts Other Casts Salicylates Urine Opiates Screen Acetaminophen Ur Barbiturates Screen Ur Phencyclidine Scrn Ur Amphetamines Screen U Benzodiazepines Scrn Urine Cocaine Screen U Marijuana (THC) Screen Ethyl Alcohol COVID-19 ([facility]) COVID-19 [employer] Imaging Radiologist's impression: Impressions Chest X-Ray 07/24/20 18:13 IMPRESSION: Large area of consolidation present in the right upper lobe. This could be due to pneumonia or possibly aspiration. Assessment and Plan (1) Myocardial injury: Status: Acute Myocardial injury secondary to acute hypoxia and acidosis. This could be secondary NSTEMI. However this is not a primary event. Continue to manage hypoxia and medical condition. There is a chance of cocaine induced myocardial injury. There is also possibility of cocaine induced cardiomyopathy. Will obtain an echocardiogram to assess LV systolic function and regional wall motion abnormality. There is no need for IV anticoagulation. Patient was advised to abstain from cocaine and heroin. Continue supportive care. Will sign of the case. Thank you for allowing us to partake in his care
--- NOTE | 2020-07-25 11:37 | MHC.CM.PN ---
met with pt who states that he had been a sect 35 in [place] and he had no follow ,up counseling after dc .pt should be seen by care team prior to dc pt declined a hcp
--- NOTE | 2020-07-25 12:08 | PM.EVENT ---
Event Note Date of Service: 07/25/20 Event Note: This patient was seen by me for pulmonary consultation, this AM . Complete note is dictated. A: POST HEROIN OVER DOSE RECOVERED. PNEUMONIA RIGHT UPPER LOBE COME A MOST LIKELY ASPIRATION PN. P: AGREE WITH THE CURRENT TREATMENT, WITH ZOSYN , AND OXYGEN NEEDED. WILL REPEAT CHEST X-RAY IN THE NEXT COUPLE DAYS, TO MONITOR HIS PROGRESS.
--- NOTE | 2020-07-25 13:00 | CA_ITS ---
Transthoracic Echocardiogram Patient (Last, First, Middle): Nicole Hunter, Gender: Male Date of : 1980 Age: 39 Procedure Date: 07/25/2020 Procedure Type: Transthoracic [place] [facility] [place]: 180.34 cm Weight: 77.11 kg BSA: 1.97 m2 Heart Rate: bpm BP: 132 / 60 mmHg Hydrocrane Operator: Referring MD: Bryant Foley MD Design Printer Balloon: Catarino Perez MD Symptoms: elevated troponis Study Quality: Good ECG Rhythm: Sinus Conclusions: - Essentially normal study Findings Procedure Information Contrast agent, definity, is being given per protocol without apparent complications. Left Ventricle Normal left ventricular size, thickness, and systolic function. The visually estimated ejection fraction is between 55-60%. Diastolic function is normal for age. Right Ventricle Normal right ventricular cavity size and systolic function. Atria Both atria are normal in size. There is no evidence of interatrial shunt. Aortic Valve Normal aortic valve structure and function. There is no aortic valve stenosis. There is no aortic valve regurgitation. Mitral Valve Normal mitral valve structure and function. There is trace mitral valve regurgitation. There is no mitral valve stenosis. Pulmonic Valve The pulmonic valve was not well visualized. Tricuspid Valve Likely normal tricuspid valve structure and function. There is trace tricuspid valve regurgitation. The right ventricular systolic pressure is normal. The right ventricular systolic pressure is 17 mmHg. Normal right atrial pressure. There is no evidence of pulmonary hypertension. Great Vessels All visible segments of the aorta are normal in size. The pulmonary artery was not well visualized. Venous The inferior vena cava is normal in size and collapses greater than 50% with inspiration. Pericardium/Pleural There is no evidence of pericardial effusion. Prior Study Comparison No prior study available for comparison. Measurements 2D Linear Measurements IVSd: 1.03 0.6-0.9/0.6-1.0 cm LVIDd: 5.26 3.9-5.3/4.2-5.9 cm LVIDd Index: 2.67 2.4-3.2/2.2-3.1 cm/m2 LVIDs: 3.78 2.0-3.6 cm LVPWd: 1.03 0.7-1.1 cm Ao Root: 3.30 2.1-3.5 cm LA Diam: 3.10 2.7-3.8/3.0-4.0 cm LAIDs Index: 1.57 1.5-2.3 cm/m2 LV Mass: 256.56 67-162/88-224 g LV Mass Index: 130.23 43-95/49-115 g/m2 LVOT Diam: 2.20 3.0+(-)1.3 cm 2D Systolic Function EF 4C: 36.00 >55% EF 2C: 39.90 >55% Mitral Valve MV Pk E: 0.71 MV PK A: 0.59 MV Decel Time: 155.00 E/A: 1.20 E'Lateral: 14.00 E'Medial: 10.20 E/E' Med: 6.90 E/E' Lat: 5.10 PHT: 45.00 MVA PHT: 4.89 Decel Johnson: 4.57 Aortic Valve AoV Pk Antoni: 1.16 AoV Mn Antoni: 0.83 AoV VTI: 0.26 AoV Pk Grad: 5.00 Aov Mn Grad: 3.00 JINA Cont.VTI: 3.16 LVOT LVOT Pk Antoni: 1.00 LVOT Mn Antoni: 0.75 LVOT VTI: 0.22 LVOT Pk Grad: 4.00 LVOT Mn Grad: 3.00 LVOT Diam: 2.20 LVOT Area: 3.80 Diastolic Function MV Pk E: 0.71 MV Pk A: 0.59 E/A: 1.20 E'Medial: 10.20 E/E' Med: 6.90 E' Laterial: 14.00 E/E' Lat: 5.10 Tricuspid Valve TR Pk Antoni: 1.88 TR Pk Grad: 14.00 RA Press: 3.00 RVSP: 17.00 Great Vessels Aorta Ao Root-2D: 3.30 2.0-3.7 cm Pulmonary Valve PV Pk Antoni: 1.03 Peak PV Grad: 4.00 Updated in Other Vendor System with Status of Final Catarino Perez MD electronically signed on 07/25/2020 2:57:53 PM with status of Final
--- NOTE | 2020-07-25 13:16 | CONS_ITS ---
DATE OF SERVICE: 07/25/2020 HISTORY OF PRESENT ILLNESS: This 39-year-old gentleman is seen in intermediate care unit. He was brought to the emergency room yesterday after he was found to be unconscious and this happened after he had used 2 bags of heroin. He was treated with Narcan on the spot and then brought to the emergency room. He was quite hypoxemic and needed non-rebreather mask in the beginning followed by nasal cannula. It is noted in the history that he just came out of the half-way and started using IV drugs again. Most of the information is obtained from the medical records noted in the emergency room. The patient not able to give any more details. PAST MEDICAL HISTORY: No details available at this time. PERSONAL HISTORY: There is a history of drugs abuse including cocaine, marijuana, and heroin. REVIEW OF SYSTEMS: Not obtainable at this time. PHYSICAL EXAMINATION: GENERAL: Today, this gentleman is relatively alert and does converse, but does not give much details anyway. He is not in distress at this time. His oxygenation is fairly good with oxygen 2 L/minute. HEENT: Nose and throat are okay. Pupils are reacting to light and accommodation. NECK: No JVD. Trachea in midline. No lymphadenopathy. CHEST: Symmetrical. Percussion note is resonant. Has good breath sounds on both sides. Inspiratory crackles are heard over the right upper lobe in the back of the chest. Left side is clear. CARDIAC: Sounds are normal. No murmurs or gallops. ABDOMEN: Flat, soft, and nontender. No palpable mass. EXTREMITIES: No edema or varicosities. Peripheral pulses are palpable. IMAGING: Chest x-ray shows a consolidation in the right upper lobe. Rest of the lung xiong are clear. LABORATORY DATA: White cell count 18.2, hemoglobin 13.3. COVID test is negative. Chemistries show sodium and potassium normal, chloride 109, which is slightly elevated. BUN 21, creatinine 1.76, indicating acute kidney disease. CLINICAL IMPRESSION: 1. Acute narcotics overdose. a. The patient is recovering from the overdose. 2. Pneumonia, right upper lobe, most likely aspiration type. RECOMMENDATION: 1. I agree with the treatment of pneumonia as aspiration pneumonia with IV Zosyn. 2. Oxygen supplementation as needed. 3. We will repeat his chest x-ray in few days for followup. Thank you very much for asking me to see this patient. MD KARINA Rivas/STANLEY / [id number]
--- NOTE | 2020-07-25 15:24 | HO.PM.IMPN ---
Subjective Subjective Date of Service: 07/25/20 Interval History: Acute hypoxemic respiratory failure secondary to pneumonia, drug use Review of Systems As shortness of breath, cough no fever or chills Denies any abdominal pain or nausea or vomiting Denies any weakness or numbness Physical Exam Vital Signs: Vital Signs: Last Vital Signs Temp 98.0 F 07/25/20 15:16 Pulse 72 07/25/20 15:16 Resp 18 07/25/20 15:16 BP 118/74 07/25/20 15:16 Pulse Ox 90 L 07/25/20 15:16 Body Mass Index 26.6 Physical exam: Constitutional:: Seems short of breath Cvs: rrr, [id number] , no murmur res: grossly fair air entry -dimished right>left. abd: no rebound or guarding ,nt, bs present. ext pulses present , no cyanosis has left hip pain, still soar-no erythema or deformity. neuro: axo3 , nonfocal. Objective Data Current Medications Generic Name Dose Route Start Last Admin Trade Name Freq PRN Reason Stop Dose Admin Acetaminophen 650 mg 07/24/20 22:09 07/25/20 14:31 Acetaminophen 325 Mg Tablet PO 650 mg Q6H PRN Administration Pain, Mild (Pain Scale 1-3) Aspirin 81 mg 07/25/20 09:00 07/25/20 08:43 Aspirin Enteric Coated 81 Mg Tablet. PO 81 mg DAILY JONI Administration Enoxaparin Sodium 40 mg 07/24/20 22:00 07/24/20 22:35 Enoxaparin Sodium 40 Mg/0.4 Ml Syringe SUBCUT 40 mg Q24H JONI Administration Ampicillin Sodium/Sulbactam 100 mls @ 200 mls/hr 07/25/20 02:00 07/25/20 09:37 Sodium 3 gm/ Sodium Chloride IV Infused Q8H JONI Infusion Lactated Ringer's 1,000 mls @ 100 mls/hr 07/24/20 22:09 07/25/20 08:44 Lr IVCONT 100 mls/hr .Q10H JONI Administration Ondansetron HCl 4 mg 07/24/20 22:09 Ondansetron Hcl 4 Mg/2 Ml Vial IVPUSH Q8H PRN Nausea and Vomiting Sodium Chloride 3 ml 07/25/20 00:00 07/25/20 08:45 0.9 % Sodium Chloride Flush 3 Ml Syringe IVFLUSH Not Given QSHIFT JONI Labs CBC & Chem 7: 07/25/20 05:47 07/25/20 05:47 Assessment and Plan (1) Acute respiratory failure with hypoxia: Status: Acute Assessment and Plan: 39-year-old male with no significant past medical history who presents to hospital after overdosing on heroin found to have hypoxia. 1. acute hypoxic respiratory failure- most likely secondary to aspiration pneumonia chest x-ray showing large area of consolidation right upper lobe has leukocytosis, tachycardia improving continue Unasyn, follow cultures, O2 as required, titrate as tolerated 2.heroin overdose:? reports that his 1st relapse in 3-6 months will monitor for withdrawal symptoms, p.r.n. supportive measures care team eval 3. elevated troponin: Probably multifactorial-hypoxia/acidosis/cocaine related injury. And pending Cardio evaluation noted. Will decide further therapy and a home echo if any wall motion abnormalities. 4. BOBY added cpk - improved with IV fluids - continue fluids - follow BMP 5. left hip pain: will check hip xray. pain control-seems comfortable currently oob DVT prophylaxis: Lovenox
--- NOTE | 2020-07-25 15:29 | P.CNID_ITS ---
History of Present Illness Data of Consult Service Date: 07/25/20 Requesting physician: Bryant Foley Primary Care Provider: Unknown Physician HPI Reason for consult: shortness of breath He presents to hospital after found to be comatose after taking two bags of heroin. He was in intermediate for five months and has low tolerance for opioid intoxication after not using. Review of Systems Review of Systems: Yes all other systems are reviewed and are negative PMFSH Family History Family history: reviewed and not pertinent Social History Social History Household Members: Friend(s) Housing: Apartment Do you presently have visiting nurse or other home services: No Smoking Status: Current every day smoker Tobacco Type: Cigarette Smoked in Last 30 Days: Yes Patient Interested in Nicotine Replacement: No Patient Given Instructions on How to Stop Smoking: No Second Hand Smoke Exposure: Yes Use of substances other than those prescribed or required for medical reasons: Yes Substance Use Type: Marijuana Substance Use Frequency: Daily Last Used Substance: Just Prior to Admission Currently Displaying Signs/Symptoms of Drug Intoxication Withdrawal: No Any prior treatment program specific to substance use: No Have you been hit, kicked, punched, or otherwise hurt by someone within the past year? If so, by whom?: No Do you feel safe in your current relationship?: Yes Is there a partner from a previous relationship who is making you feel unsafe now?: No Are you made to feel afraid or neglected: No [employer] Practices: [employer] Advance Directives: No Advance Directives Information Provided: Yes Do you have thoughts of harming others: None Do you have a plan to hurt others: No Plan Recently lost weight without trying: No service: No Meds Allergies Allergy/AdvReac Type Severity Reaction Status Date / Time No Known Allergies Allergy Verified 07/24/20 18:13 Active Medications: Current Medications Generic Name Dose Route Start Last Admin Trade Name Freq PRN Reason Stop Dose Admin Acetaminophen 650 mg 07/24/20 22:09 07/25/20 14:31 Acetaminophen 325 Mg Tablet PO 650 mg Q6H PRN Administration Pain, Mild (Pain Scale 1-3) Aspirin 81 mg 07/25/20 09:00 07/25/20 08:43 Aspirin Enteric Coated 81 Mg Tablet. PO 81 mg DAILY JONI Administration Enoxaparin Sodium 40 mg 07/24/20 22:00 07/24/20 22:35 Enoxaparin Sodium 40 Mg/0.4 Ml Syringe SUBCUT 40 mg Q24H JONI Administration Ampicillin Sodium/Sulbactam 100 mls @ 200 mls/hr 07/25/20 02:00 07/25/20 09:37 Sodium 3 gm/ Sodium Chloride IV Infused Q8H JONI Infusion Lactated Ringer's 1,000 mls @ 100 mls/hr 07/24/20 22:09 07/25/20 08:44 Lr IVCONT 100 mls/hr .Q10H JONI Administration Ondansetron HCl 4 mg 07/24/20 22:09 Ondansetron Hcl 4 Mg/2 Ml Vial IVPUSH Q8H PRN Nausea and Vomiting Sodium Chloride 3 ml 07/25/20 00:00 07/25/20 08:45 0.9 % Sodium Chloride Flush 3 Ml Syringe IVFLUSH Not Given QSHIFT [facility] Home Medications Medication Instructions Recorded Confirmed Last Taken Type Unobtainable 07/24/20 07/24/20 Unknown History Physical Exam Vital Signs: Vital Signs: Last Vital Signs Temp 98.0 F 07/25/20 15:16 Pulse 72 07/25/20 15:16 Resp 18 07/25/20 15:16 BP 118/74 07/25/20 15:16 Pulse Ox 90 L 07/25/20 15:16 Body Mass Index 26.6 Const: General: cooperative HENMT: Ears: hearing grossly normal bilaterally Mouth: Normal oral and palatal mucosa present Resp: Effort & Inspection: normal respiratory effort and audible wheezes Cardio: Rate: regular rate Rhythm: regular rhythm GI: Palpation (GI): Soft to palpation and nontender Skin: General skin exam: no rashes or lesions noted Results Labs CBC & Chem 7: 07/25/20 05:47 07/25/20 05:47 Labs: Short CBC 07/24/20 07/25/20 Range/Units 19:02 05:47 WBC 22.7 H 18.2 H (4.8-10.8) X10*3/uL Hgb 16.6 13.3 L (14.0-18.0) g/dl Hct 54.2 H 42.4 D (42-52) % Plt Count 167 184 (160-400) X10*3/uL BMP 0407/24/20 07/25/20 19:02 22:57 05:47 Sodium 144 141 139 Potassium 4.4 4.8 4.7 Chloride 106 111 H 109 H Carbon Dioxide 16 L 20 L 20 L BUN 18 H 19 H 21 H Creatinine 2.57 H 1.95 H 1.76 H Calcium 9.2 7.4 L D 7.7 L Liver Function 07/24/20 Range/Units 19:02 Total Bilirubin 0.4 (0.0-1.0) mg/dL Direct Bilirubin 0.2 (0.0-0.5) mg/dL AST 58 H (5-37) U/L ALT 25 (0-40) U/L Alkaline Phosphatase 92 (39-117) U/L Albumin 4.9 (3.5-5.0) g/dL Urine 07/24/20 Range/Units 23:54 Urine Color BROWN Urine Appearance HAZY Urine pH 5.0 (5.0-8.0) Ur Specific [place] >= 1.030 H (1.005-1.025) Urine Protein 2+ H (NEG-TRACE) MG/DL Urine Glucose (UA) NEG (NEG) MG/DL Assessment and Plan (1) Pneumonia: Qualifiers: Aspiration pneumonia type: unspecified Laterality: right Lung location: upper lobe of lung Pneumonia type: aspiration pneumonia Qualified Code(s): J69.0 - Pneumonitis due to inhalation of food and vomit Problem details: pneumonia aspiration concern Status: Acute Continue Unasyn day 1/3-5 d IV Add Doxycycline and check MRSA nares and Legionella Check HIV (2) Acute renal failure: Qualifiers: Acute renal failure type: with acute tubular necrosis Qualified Code(s): N17.0 - Acute kidney failure with tubular necrosis Status: Acute
[2020-07-25] MEDS: 0.9 % Sodium Chloride Flush 3 ML SYRINGE IVFLUSH (15:57)
[2020-07-25] MEDS: Doxycycline Hyclate 100 MG in 0.9 % Sodium Chloride 250 ML 166.67 MG IV (16:10)
[2020-07-25 17:52] LABS: Alanine Aminotransferase 163 U/L (0-40); Albumin Level 3.6 g/dL (3.5-5.0); Alkaline Phosphatase 55 U/L (39-117); Aspartate Amino Transferase 580 U/L (5-37); Bilirubin Direct 0.2 mg/dL (0.0-0.5); Bilirubin Total 0.4 mg/dL (0.0-1.0); Total Protein 5.5 g/dL (6.5-8.0)
[2020-07-25] MEDS: vancomycin HCL 750 MG in 0.9 % Sodium Chloride 250 ML 265 MG IV (21:11)
[2020-07-25] MEDS: Lactated Ringers 1,000 ML 150 ML IVCONT (21:14)
[2020-07-26] MEDS: 0.9 % Sodium Chloride Flush 3 ML SYRINGE IVFLUSH ×2 (01:44→10:00)
[2020-07-26] MEDS: Ampicillin Sodium/Sulbactam Na 3 GM in 0.9 % Sodium Chloride 100 ML IV ×2 (01:44→10:00)
[2020-07-26] MEDS: Doxycycline Hyclate 100 MG in 0.9 % Sodium Chloride 250 ML 166.67 MG IV (04:01)
[2020-07-26] MEDS: Lactated Ringers 1,000 ML 150 ML IVCONT (04:02)
[2020-07-26 04:14] VITALS: PULSE 51; TEMP 36.6
[2020-07-26] MEDS: Acetaminophen 325 MG TABLET 650 MG PO ×2 (05:22→10:08)
[2020-07-26 08:44] LABS: Hemoglobin 12.4 g/dl (14.0-18.0); Mean Corpuscular Hemoglobin 25.7 pg (27.0-33.0); PLT CLUMP 1; Red Blood Count 4.82 X10*6/uL (4.60-5.80)
[2020-07-26 08:46] LABS: Hematocrit 38.3 % (42-52); Mean Corpuscular HGB Conc 32.4 g/dl (31.0-36.0); Mean Corpuscular Volume 79.5 fL (80-98); Platelet Count 136 X10*3/uL (160-400); Red Cell Distribution Width 13.5 % (11.0-16.0)
[2020-07-26 09:06] LABS: MRSA Nasal PCR NEGATIVE (Negative); SA Nasal PCR POSITIVE (Negative)
[2020-07-26 09:14] LABS: Anion Gap 10 (12-20); Blood Urea Nitrogen 14 mg/dL (9-16); Calcium 8.2 mg/dL (8.4-10.2); Carbon Dioxide 25 mmol/L (22-29); Chloride 109 mmol/L (96-108); Estimated Glomerular Filt Rate 55; Glucose Random 111 mg/dL (60-115); Potassium 3.8 mmol/L (3.3-5.1); Sodium 140 mmol/L (135-145)
[2020-07-26] MEDS: Aspirin Enteric Coated 81 MG TABLET.DR PO (09:59)
[2020-07-26 11:24] VITALS: BP 138/82; PULSE 57; RESP 20; TEMP 36.6; O2SAT 98
[2020-07-26 11:34] LABS: Alanine Aminotransferase 177 U/L (0-40); Albumin Level 3.3 g/dL (3.5-5.0); Alkaline Phosphatase 53 U/L (39-117); Aspartate Amino Transferase 489 U/L (5-37); Bilirubin Direct 0.3 mg/dL (0.0-0.5); Bilirubin Total 0.6 mg/dL (0.0-1.0); Total Protein 5.2 g/dL (6.5-8.0)
[2020-07-26] MEDS: vancomycin HCL 750 MG in 0.9 % Sodium Chloride 250 ML 265 MG IV (12:05)
[2020-07-26 12:41] LABS: Phosphorus 1.7 mg/dL (2.7-4.5)
--- NOTE | 2020-07-26 13:31 | MHC.CM.PN ---
per md no dc date at th time pt to be seen by care team prior to dc
[2020-07-26 15:15] VITALS: BP 131/83; PULSE 65; RESP 20; TEMP 36.8; O2SAT 96
--- NOTE | 2020-07-26 15:54 | PC.NURSE ---
Patient wants to leave AMA now, stated that he doesnt wanT NO MORE iv ACCESS, NO MORE staying in the hospital. Pt's Tramaine renteria came to see the patient and encouraged him to stay in the hospital. Patient decision is not to stay in the hospital. Dr Foley was notified. Patient understands the risks to go AMA.
--- NOTE | 2020-07-26 16:10 | PM.DS ---
DS: Providers Provider Date of Service: 07/28/20 Date of admission: 07/24/20 21:32 Primary care physician: Unknown Physician Consults: 07/25/20 07:44 Consult to Pulmonology Routine Consulting Provider: Timo Alcocer Reason for consultation: acute hypoxemic respiratory failure /Pneumonia Has provider been notified: No 07/25/20 07:51 Consult to Cardiology Routine Consulting Provider: Catarino Perez Reason for consultation: elevated trops-? related cocaine Has provider been notified: No 07/25/20 07:54 Consult to Infectious Diseases Routine Consulting Provider: Brianna March Reason for consultation: acute hypoxemic respiratory failure /lobar pneumonia , recently out of residential 07/26/20 09:41 Consult to Nephrology Routine Consulting Provider: Javy Donovan Reason for consultation: boby, severe rhabdomylysis DS: Diagnosis Discharge Diagnosis (1) Acute respiratory failure with hypoxia: Status: Acute (2) Pneumonia: Status: Acute Problem details: pneumonia aspiration concern (3) Acute renal failure: Status: Acute DS: Medications Discharge Medications Home Medications: Home Medications Medication Instructions Recorded Confirmed Unobtainable 07/24/20 07/24/20 Previous Rx's Medication Instructions Recorded amoxicillin 500 mg PO BID #20 cap 07/26/20 DS: Summary Hospital Course Hospital Course: 39-year-old male with past medical history of heroin abuse who presents to the hospital after being found by a bystander not breathing. He was given a mg of Narcan nasally by EMS, and found to be hypoxic satting 60% on ambient air, room urine another 2 mg of Narcan nasally, and obtained for consciousness. Brought into the ED, remained hypoxic, on non-rebreather satting 95%. Patient is somnolent but arousable, does not remember what happened to him but recalls that he took 2 bags of heroin. Apparently he just recently came out of residential and relapsed to using IV drugs. Currently denies any chest pain, abdominal came a nausea vomiting, no diarrhea constipation, no urinary symptoms and no lower extremity edema. No headache. On arrival to the ED vitals were significant for heart rate of 127, respiratory rate of 16, blood pressure 95/68, satting 73% on room air. Patient was placed on 6 L of oxygen satting 87% switched to non-rebreather and currently satting 98%. Labs are significant for 22.7, hemoglobin of 16.6, sodium of 141, potassium 4.8, chloride of 111, BUN of 19, creatinine of 2.57 with a baseline around 1.1 from 2019, lactic acid of 3.0, high sensitivity troponin of 62.5 on repeat 195.1, For blood and RBC, UDS positive for opiates cocaine and marijuana, chest x-ray shows large area of consolidation present in the right upper lobe. Patient will be admitted for further management, unable to obtain past medical history from him as he is very somnolent and is wants to go back to sleep. Hospital Course problem [place] section: Patient came with acute hypoxemic respiratory failure secondary to pneumonia, also in addition to that cocaine abuse , rhabdomyolysis severe, also bacteremia: Patient was started on hydration, antibiotics IV as well as oxygen therapy Shortness of breath [place] seems improving but rhabdomyolysis [place] still has elevated muscle enzymes levels (cpk), boby, also bacteremia: Patient wanted to leave against medical advice-the risk of leaving against medical advise including worsening of rhabdomyolysis, BOBY,worseing liver functions, bacteremia, sepsis, including discussed with him in detail. He understands but still wants to leave. He is alert oriented x3. He was also advised to go to nearest emergency room for further management. He was told and encouraged to hydrates himself. And follow-up with PCP also as soon as possible. He was strongly encouraged to stop cocaine use. Above management discussed with the patient in detail length he understand and in agreement with the above plan, time spent 50 minutes and 50% time spent on counseling. Significant findings: As above. Procedures performed: None. Treatment and response: As above. Complications: None. Time Spent with Patient Time attestation: Total time spent providing and/or coordinating discharge services: Discharge coordination time: Greater than 30 minutes Physical Exam Vital Signs: Vital Signs: Last Vital Signs Temp 98.3 F 07/26/20 15:15 Pulse 65 07/26/20 15:15 Resp 20 07/26/20 15:15 BP 131/83 07/26/20 15:15 Pulse Ox 96 07/26/20 15:15 Body Mass Index 26.6 Physical exam: Constitutional: not in acute distress. Cvs: rrr, [id number] , no murmur res: grossly fair air entry , slightly diminshed at right side. abd: no rebound or guarding ,nt, bs present. ext pulses present , no cyanosis neuro: axo3 , nonfocal. DS: Data Data Completed and Pending Labs on day of discharge: Laboratory Results - last 24 hr 07/25/20 07/25/20 07/26/20 05:47 21:26 08:37 WBC 10.0 RBC 4.82 Hgb 12.4 L Hct 38.3 L MCV 79.5 L MCH 25.7 L MCHC 32.4 RDW 13.5 Plt Count 136 L D MPV 12.0 Absolute Nucleated RBC 0.000 Nucleated RBC % (auto) 0.0 Sodium Potassium Chloride Carbon Dioxide Anion Gap BUN Creatinine Estim Creat Clear Calc Estimated GFR Random Glucose Calcium Phosphorus Total Bilirubin 0.4 Direct Bilirubin 0.2 AST 580 H ALT 163 H Alkaline Phosphatase 55 D Total Creatine Kinase 17039 H Total Protein 5.5 L D Albumin 3.6 D Nasal Screen MRSA (PCR) NEGATIVE Nasal S. aureus Screen POSITIVE A Nasal MRSA/S.aureus Interp SEE NOTE 07/26/20 08:38 WBC RBC Hgb Hct MCV MCH MCHC RDW Plt Count MPV Absolute Nucleated RBC Nucleated RBC % (auto) Sodium 140 Potassium 3.8 Chloride 109 H Carbon Dioxide 25 Anion Gap 10 L BUN 14 Creatinine 1.44 H Estim Creat Clear Calc 65.0 Estimated GFR 55 Random Glucose 111 Calcium 8.2 L D Phosphorus 1.7 L Total Bilirubin 0.6 Direct Bilirubin 0.3 AST 489 H ALT 177 H Alkaline Phosphatase 53 Total Creatine Kinase 29187 H D Total Protein 5.2 L Albumin 3.3 L Nasal Screen MRSA (PCR) Nasal S. aureus Screen Nasal MRSA/S.aureus Interp Discharge Plan Discharge Patient Disposition: Left Against Medical Advice Referrals: Physician,Unknown [Primary Care Provider] - Discharge Medications: No Action No Known Home Meds RF: 0 Discharge Orders: Discharge Order (Routine); Ordered 07/28/20 Ordered By: Bryant Foley Diet: advance to usual diet Activity on Discharge: As tolerated Care Plan Goals: Patient came with acute hypoxemic respiratory failure secondary to pneumonia, also in addition to that cocaine abuse , rhabdomyolysis severe, probable bacteremia: Patient was started on hydration, antibiotics IV as well as oxygen therapy Shortness of breath [place] seems improving but rhabdomyolysis [place] still has elevated muscle enzymes levels (cpk), boby, alsoso bacteremia: Patient wanted to leave against medical advice-the risk of leaving against medical advise including worsening of rhabdomyolysis, BOBY,worseing liver functions, bacteremia, sepsis, including discussed with him in detail. He understands but still wants to leave. He is alert oriented x3. He was also advised to go to nearest emergency room for further management. He was told and encouraged to hydrates himself. And follow-up with PCP also as soon as possible. He was strongly encouraged to stop cocaine use. Health Concerns: As above. Plan of Treatment: As above. Assessment: As above. Discharge Date/Time: 07/26/20 16:21
[2020-07-27 04:37] LABS: HIV AB/AG Nonreactive (Nonreactive); HIV Num 1 0.05 S/CO (0.00-0.99)
[2020-07-27 04:37] LABS: HIV AB/AG Nonreactive (Nonreactive); HIV Num 1 0.08 S/CO (0.00-0.99)
--- NOTE | 2020-07-27 08:32 | MHC.CDI.RETR ---
Documented by User: Callie Martin CCS, CDIS 07/27/20 08:38 Retrospective Query Please clarify if you have treated a probable/suspected/likely or confirmed: Sepsis Sepsis due to aspiration pneumonia with acute hypoxemic respiratory failure POA, resolved Please specify if known PLEASE DO NOT DELETE/MODIFY EXISTING CONTENT Additional information is needed in order to code to the highest accuracy and appropriate Severity of Illness (SOI). Please clarify the information noted below in your progress notes and discharge summary. Risk Factors/Clinical Indicators/Treatments Pt came in w Acute hypoxic respiratory failure 2nd pna also abuse of cocaine, rhabdomyolysis severe, probable bacteremia. Overdose on heroin RR 22/24 LA 3.0 HR 127 WBC 22.7 BANDS 22.7 IV Zosyn, IV fluids, oxygen D/S 07/26 - Bacteremia, AMA CDS: Callie Martin CCS, CDIS Contact Number: [phone] Please Review the information above and exercise your independent professional judgment in responding to the query. If you concur, pleas document in the PROGRESS NOTES and DISCHARGE SUMMARY. If you do not agree with the query, please document in the query above. THIS QUERY IS PART OF THE PERMANENT MEDICAL RECORD Documented by User: Bryant Foley MD 07/28/20 17:15 Retrospective Query Service Date: 07/26/20 sepsis criteria met on admission Provider Response: Pneumonia
[2020-07-28 13:07] LABS: HCV Log PCR <1.18 NOT DETECTED Log IU/mL (NOT DETECTED); HepC Viral Load <15 NOT DETECTED IU/mL (NOT DETECTED)
== END 2020-07-26 16:21 | disposition left against medical advice (07) | DRG 816 ==
LOC: HO.ED 20:19 → HO.EDOVER 21:44 → HO.IMC 22:10
PROVIDERS: Internal Medicine; Admitting Provider Internal Medicine; Emergency Provider Internal Medicine; Visit Provider Internal Medicine
DX: T40.1X1A Poisoning by heroin, accidental (unintentional), initial encounter (principal); I21.A1 Myocardial infarction type 2; J69.0 Pneumonitis due to inhalation of food and vomit; J96.01 Acute respiratory failure with hypoxia; N17.0 Acute kidney failure with tubular necrosis; A41.9 Sepsis, unspecified organism; M62.82 Rhabdomyolysis; Z20.822 Contact with and (suspected) exposure to COVID-19; Y92.9 Unspecified place or not applicable; Z79.899 Other long term (current) drug therapy; Z87.891 Personal history of nicotine dependence
CPT/HCPCS: 36415; 71045; 73521; 80048; 80076; 80143; 80179; 80307; 80320; 81001; 81003; 82550; 83605; 84100; 84484; 85007; 85025; 85027; 85610; 87040; 87205; 87389; 87449; 87522; 87635; 87640; 87641; 93005; 93306; 96365; 96375; 99285; J0295; J1650; J2060; J2543; J3370; Q9957

== ENCOUNTER 2020-07-26 17:36 | Inpatient (IN) | payer MEDICAID, SELFPAY ==
--- NOTE | ~2020-07-26 | XR_ITS ---
EXAMINATION: XR CHEST CLINICAL INFORMATION: Syncope COMPARISON: Chest radiograph 07/24/2020 TECHNIQUE: Frontal view of the chest was obtained. FINDINGS: There is been a dramatic improvement in appearances compared to the study of 2 days ago with clearing of nearly the entire large area of consolidation in the left upper lobe with only minimal residual patchy density seen. Heart size normal. Left lung remains clear. No pleural effusions. XR/XR chest 1V IMPRESSION: Marked improvement in appearances in the right lung with near complete clearing of previously detected infiltrate.
[2020-07-26 17:57] VITALS: BP 120/76; PULSE 85; RESP 20; TEMP 36.9; O2SAT 89; BMI 27.9
[2020-07-26 21:23] VITALS: BP 139/86; PULSE 84; RESP 16; TEMP 37.1; O2SAT 99
--- NOTE | 2020-07-26 22:48 | ED_ITS ---
HPI - General Adult General Chief complaint: General Medical Stated complaint: ?Syncope Time Seen by Provider: 07/26/20 22:45 Source: patient and family (Uncle) Mode of arrival: ambulatory Limitations: no limitations History of Present Illness HPI narrative: 39-year-old male history of IV drug abuse, patient was just hospitalized for sepsis due to pneumonia and respiratory failure, patient opted to sign against medical advice to smoke cigarettes, patient was discharged home with Augmentin, patient was found by his uncle at home cyanotic, not breathing and not responding. Patient has no recollection of the event. Patient declined any recent use of IV drugs. Related Data Home Medications Medication Instructions Recorded Confirmed Unobtainable 07/24/20 07/24/20 Previous Rx's Medication Instructions Recorded amoxicillin 500 mg PO BID #20 cap 07/26/20 Allergies Allergy/AdvReac Type Severity Reaction Status Date / Time No Known Allergies Allergy Verified 07/24/20 18:13 Review of Systems Review of Systems: All other systems are reviewed and are negative Constitutional: Reports as per HPI and Reports no additional constitutional complaints Eyes: Reports as per HPI and Reports no additional eye complaints Reports system reviewed and no additional complaints, except as documented Cardiovascular: Reports as per HPI and Reports no additional cardiovascular complaints Respiratory: Reports as per HPI and Reports no additional respiratory complaints Gastrointestinal: Reports as per HPI and Reports no additional gastrointestinal complaints Genitourinary: Reports no additional female genitourinary complaints Musculoskeletal: Reports no additional musculoskeletal complaints Skin/Breast: Reports system reviewed and no additional complaints, except as docu Psychiatric: Reports no additional psychiatric complaints Endocrine: Reports no additional endocrine complaints Hematologic/Lymphatic: Reports no additional hematologic/lymphatic complaints Allergic/Immunologic: Reports no additional allergic/immunologic complaints Reports system reviewed and no additional complaints, except as documented and Reports Abnormal speech present [facility] Social History Social History Household Members: Friend(s) Housing: Apartment Smoking Status: Current every day smoker Tobacco Type: Cigarette Second Hand Smoke Exposure: Yes Substance Use Type: Marijuana Advance Directives: No Advance Directives Information Provided: No service: No Physical Exam Vital Signs: Vital Signs: Last Vital Signs Temp 98.7 F 07/26/20 21:23 Pulse 84 07/26/20 21:23 Resp 16 07/26/20 21:23 BP 139/86 07/26/20 21:23 Pulse Ox 99 07/26/20 21:23 Body Mass Index 27.9 Vital signs have been reviewed as appeared to be correct. Blood pressure normal. Heart rate normal. Respiration rate normal. Temperature normal. Oxygen saturation normal. Appearance: Alert. Oriented X3. No acute distress. Head: Normal external exam. Normocephalic. Atraumatic. No [place] signs noted. No raccoon eyes noted Eyes: PERRLA. EOMI. Conjunctiva and sclera normal. Eyelids normal. ENT: TM's Normal. Pharynx normal. Uvula midline. Moist mucous membranes. No trismus noted. No drooling noted. No muffled voice noted. Neck: Normal inspection. Neck supple. FROM. No adenopathy. Thyroid Normal. No meningeal signs. No neck mass noted. CVS: Normal heart rate and rhythm. Heart sound normal. No murmurs noted. Pulses normal throughout. Respiratory: No respiratory distress. Painless inspiration. Breath sounds normal. No wheezes/rales/rhonchi noted. Chest nontender. No accessory muscle usage noted or decreased air movement noted. Abdomen: Soft and nontender. Bowel sounds normal in all 4 quadrants. No distention noted. No organomegaly noted. No visible injury noted. Back: No CVA tenderness. Full range of motion noted. Skin: Skin warm and dry. Normal skin color. Normal skin turgor. No rashes/lesions/lacerations noted. Extremities: No lower extremity edema. Extremities exhibit normal range of motion. Extremities nontender. Neuro: Oriented X 3. No motor deficit. No sensory deficit. Reflexes normal. Course Course Course Narrative: Assessment and plan. 39-year-old male who was hospitalized and patient signed against medical advise yesterday to smoke cigarettes, patient today found by his uncle unresponsive and cyanotic, patient started to have spontaneous breathing shortly after. Patient was signed against medical advice yesterday was in the hospital for pneumonia with sepsis/rhabdomyolysis. Will admit the patient for further IV hydration and assessment for syncope. Medical Decision Making Lab Data Lab results reviewed: Yes I reviewed the patient's lab results. Result diagrams: 07/26/20 23:14 07/26/20 23:14 Labs: Lab Results 07/26/20 07/26/20 07/26/20 Range/Units 23:14 23:14 23:14 WBC 7.4 (4.8-10.8) X10*3/uL RBC 5.02 (4.60-5.80) X10*6/uL Hgb 13.0 L (14.0-18.0) g/dl Hct 40.1 L (42-52) % MCV 79.9 L (80-98) fL MCH 25.9 L (27.0-33.0) pg MCHC 32.4 (31.0-36.0) g/dl RDW 13.4 (11.0-16.0) % Plt Count 147 L (160-400) X10*3/uL MPV 11.6 (9.4-12.4) fL Immature Gran % (Auto) 0.5 H (0.0-0.4) % Neut % (Auto) 69.4 (45-73) % Lymph % (Auto) 22.8 (20-40) % [place] % (Auto) 6.5 (2-11) % Eos % (Auto) 0.5 (0-4) % Baso % (Auto) 0.3 (0-2) % Lymph # (Auto) 1.7 (1.2-4.9) X10*3/uL [place] # (Auto) 0.5 (0.1-1.2) X10*3/uL Eos # (Auto) 0.0 (0.0-0.4) X10*3/uL Baso # (Auto) 0.0 (0.0-0.2) X10*3/uL Abs Immat Gran (auto) 0.04 H (0.00-0.03) X10*3/uL Absolute Neuts (auto) 5.1 (2.0-8.3) X10*3/uL Absolute Nucleated RBC 0.000 (0.0-0.012) X10*3/uL Nucleated RBC % (auto) 0.0 (0.0-0.2) /100WBC Sodium 141 (135-145) mmol/L Potassium 3.7 (3.3-5.1) mmol/L Chloride 105 (96-108) mmol/L Carbon Dioxide 30 H (22-29) mmol/L Anion Gap 10 L (12-20) BUN 13 (9-16) mg/dL Creatinine 1.33 (0.5-1.4) mg/dL Estim Creat Clear Calc 86.8 Estimated GFR > 60 Random Glucose 96 (60-115) mg/dL Lactic Acid (0.5-2.0) mmol/L Calcium 8.9 D (8.4-10.2) mg/dL Total Bilirubin 0.7 (0.0-1.0) mg/dL Direct Bilirubin 0.3 (0.0-0.5) mg/dL AST 632 H (5-37) U/L ALT 230 H (0-40) U/L Alkaline Phosphatase 59 (39-117) U/L Troponin I High Sens 76.9 H D (<3.5-35.0) ng/L B-Natriuretic Peptide 215 H (<100) pg/mL Total Protein 6.1 L (6.5-8.0) g/dL Albumin 3.9 (3.5-5.0) g/dL Lipase 20 (8-78) U/L Urine Color Urine Appearance Urine pH (5.0-8.0) Ur Specific [place] (1.005-1.025) Urine Protein (NEG-TRACE) MG/DL Urine Glucose (UA) (NEG) MG/DL Urine Ketones (NEG) MG/DL Urine Blood (NEG) Urine Nitrite (NEG) Ur Leukocyte Esterase (NEG) Urine RBC (0) /HPF Urine WBC (0-4) /HPF Ur Squamous Epith Cells /LPF Urine Bacteria /LPF COVID-19 ([facility]) (Negative) COVID-19 Clin Com 07/26/20 07/26/20 07/27/20 Range/Units 23:14 23:30 00:10 WBC (4.8-10.8) X10*3/uL RBC (4.60-5.80) X10*6/uL Hgb (14.0-18.0) g/dl Hct (42-52) % MCV (80-98) fL MCH (27.0-33.0) pg MCHC (31.0-36.0) g/dl RDW (11.0-16.0) % Plt Count (160-400) X10*3/uL MPV (9.4-12.4) fL Immature Gran % (Auto) (0.0-0.4) % Neut % (Auto) (45-73) % Lymph % (Auto) (20-40) % [place] % (Auto) (2-11) % Eos % (Auto) (0-4) % Baso % (Auto) (0-2) % Lymph # (Auto) (1.2-4.9) X10*3/uL [place] # (Auto) (0.1-1.2) X10*3/uL Eos # (Auto) (0.0-0.4) X10*3/uL Baso # (Auto) (0.0-0.2) X10*3/uL Abs Immat Gran (auto) (0.00-0.03) X10*3/uL Absolute Neuts (auto) (2.0-8.3) X10*3/uL Absolute Nucleated RBC (0.0-0.012) X10*3/uL Nucleated RBC % (auto) (0.0-0.2) /100WBC Sodium (135-145) mmol/L Potassium (3.3-5.1) mmol/L Chloride (96-108) mmol/L Carbon Dioxide (22-29) mmol/L Anion Gap (12-20) BUN (9-16) mg/dL Creatinine (0.5-1.4) mg/dL Estim Creat Clear Calc Estimated GFR Random Glucose (60-115) mg/dL Lactic Acid 1.1 (0.5-2.0) mmol/L Calcium (8.4-10.2) mg/dL Total Bilirubin (0.0-1.0) mg/dL Direct Bilirubin (0.0-0.5) mg/dL AST (5-37) U/L ALT (0-40) U/L Alkaline Phosphatase (39-117) U/L Troponin I High Sens (<3.5-35.0) ng/L B-Natriuretic Peptide (<100) pg/mL Total Protein (6.5-8.0) g/dL Albumin (3.5-5.0) g/dL Lipase (8-78) U/L Urine Color YELLOW Urine Appearance CLEAR Urine pH 6.0 (5.0-8.0) Ur Specific [place] 1.025 (1.005-1.025) Urine Protein NEG (NEG-TRACE) MG/DL Urine Glucose (UA) NEG (NEG) MG/DL Urine Ketones NEG (NEG) MG/DL Urine Blood 1+ H (NEG) Urine Nitrite NEG (NEG) Ur Leukocyte Esterase NEG (NEG) Urine RBC 5-9 H (0) /HPF Urine WBC 1-4 (0-4) /HPF Ur Squamous Epith Cells 1+ /LPF Urine Bacteria 1+ /LPF COVID-19 ([facility]) Negative (Negative) COVID-19 Clin Com See Note Imaging Data Chest x-ray: Radiologist's impression: Marked improvement in appearances in the right lung with near complete clearing of previously detected infiltrate. ECG Data Interpretation: Sinus bradycardia at 51 beats per minute, normal intervals, no ST-T changes. Discharge Plan Discharge Clinical Impression: Elevated troponin, Syncope, Rhabdomyolysis Patient Disposition: Admitted As Inpatient Interventions: LWBS Worksheet Last Done: 07/26/20 19:01
--- NOTE | 2020-07-26 22:51 | ECG_ITS ---
Test Reason : THIGH PAIN Blood Pressure : / mmHG Vent. Rate : 051 BPM Atrial Rate : 051 BPM P-R Int : 150 ms QRS Dur : 094 ms QT Int : 462 ms P-R-T Axes : 050 058 041 degrees QTc Int : 425 ms Sinus bradycardia with marked sinus arrhythmia Otherwise normal ECG When compared with ECG of 24-JUL-2020 19:18, Vent. rate has decreased BY [address] no longer elevated in Inferior leads Referred By: Marii Tafoya Electronically Signed By:BARBARA GARCIAS MD
--- NOTE | 2020-07-26 23:10 | CONS_ITS ---
DATE OF SERVICE: REASON FOR CONSULTATION: I was called to see this patient today to assist in the management of acute kidney injury and rhabdomyolysis. HISTORY OF PRESENT ILLNESS: To summarize, Nicole is a 39-year-old man, who normal renal function prior to this admission. He was admitted on July 24 with a history of accidental heroin overdose. At the time of admission, he was found to have acute kidney injury with serum BUN and creatinine of 19 and 1.95. Over the next few days, there has been increase in the serum creatinine. Today, the CPK level was drawn, which was elevated at 88,000 and hence this consultation. Interestingly, the urinalysis earlier showed 3+ blood with only 5 to 9 rbc's. He has been receiving IV hydration during this admission. The serum creatinine was 2.57 on admission, which has gradually decreased to 1.44 as of today. He is nonoliguric. He is tolerating IV hydration. PAST MEDICAL HISTORY: Ongoing medical problems include history of drug abuse. PAST SURGICAL HISTORY: No significant past surgical history. ALLERGIES: NO KNOWN DRUG ALLERGIES. MEDICATIONS: All the current medications were reviewed. REVIEW OF SYSTEMS: No headache, nausea, or vomiting. No abdominal pain, diarrhea, or constipation. No urinary symptoms. No fever. No rash. PHYSICAL EXAMINATION: GENERAL: Nicole is a young man, who is awake, comfortable, not in any distress. NECK: Supple. No JVD. HEENT: Mucosa is dry. LUNGS: Equal to percussion. No rales. HEART: S1, S2 heard. No gallop or rub. ABDOMEN: Soft, nontender. EXTREMITIES: No edema. No rash. No clubbing. VITAL SIGNS: Blood pressure today was 138/82, pulse 57, temperature 97.9. DIAGNOSTIC DATA: Chest x-ray on admission showed large area of consolidation of the right upper lobe. LABORATORY DATA: Hemoglobin 12.4, platelets 136. Sodium 140, potassium 3.8, CO2 of 25, BUN 14, creatinine 1.44, calcium 8.2, phosphorus 1.7. CPK was 88,900 yesterday, which is decreased to 20,638. Serum albumin 3.3. 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 The renal function is improving. The serum creatinine is close to baseline, but has not reached baseline yet. He is currently nonoliguric. He had significant rhabdomyolysis and the CPK is also trending down. RECOMMENDATIONS: At this point, my recommendation would be to keep his intake more than the output. Continue with IV hydration and watch renal function closely. There is no indication for dialysis at this point. He does have mild hypophosphatemia and mild hypocalcemia. There is no hyperkalemia at this point. I would watch these values and replace phosphorus if necessary. Hypophosphatemia is also a risk factor for , so with a level of 1.7, he will require phosphorus supplementation to maintain the serum phosphorus more than 2.5 millimoles. We will follow him along with the team. Javy Donovan MD BPA/MODL / [id number]
[2020-07-26 23:20] LABS: Basophils Percent Auto 0.3 % (0-2); Eosinophils Percent Auto 0.5 % (0-4); Hematocrit 40.1 % (42-52); Imm Gran Abs Auto 0.04 X10*3/uL (0.00-0.03); Imm Gran Pct Auto 0.5 % (0.0-0.4); Lymphocytes Absolute Auto 1.7 X10*3/uL (1.2-4.9); Lymphocytes Percent Auto 22.8 % (20-40); MANUAL DIFF FLAG NO; Mean Corpuscular HGB Conc 32.4 g/dl (31.0-36.0); Mean Corpuscular Hemoglobin 25.9 pg (27.0-33.0); Mean Corpuscular Volume 79.9 fL (80-98); Mean Platelet Volume 11.6 fL (9.4-12.4); Monocytes Absolute Auto 0.5 X10*3/uL (0.1-1.2); Monocytes Percent Auto 6.5 % (2-11); Neutrophils Absolute Auto 5.1 X10*3/uL (2.0-8.3); Neutrophils Percent Auto 69.4 % (45-73); Platelet Count 147 X10*3/uL (160-400); Red Blood Count 5.02 X10*6/uL (4.60-5.80); Red Cell Distribution Width 13.4 % (11.0-16.0); White Blood Count 7.4 X10*3/uL (4.8-10.8)
[2020-07-26] MEDS: 0.9 % Sodium Chloride 1,000 ML 999 ML IVCONT (23:34)
[2020-07-26 23:36] LABS: Lactic Acid 1.1 mmol/L (0.5-2.0)
--- NOTE | 2020-07-26 23:46 | PC.NURSE ---
Patient attempting to provide urine specimen at this time. Friend at bedside with patient. 22g IV access established in left forearm. Labs drawn and sent for analysis. Awaiting results. Left AMA around 4pm earlier today after admission. Will continue to monitor.
[2020-07-26 23:49] LABS: B Type Natriuretic Peptide 215 pg/mL (<100)
[2020-07-26 23:50] LABS: Troponin-I High Sensitivity 76.9 ng/L (<3.5-35.0)
[2020-07-26 23:54] LABS: COVID-19 Test Negative (Negative); IDNOW Serial# 9DD0AD1C
[2020-07-26 23:56] LABS: Alanine Aminotransferase 230 U/L (0-40); Albumin Level 3.9 g/dL (3.5-5.0); Alkaline Phosphatase 59 U/L (39-117); Anion Gap 10 (12-20); Aspartate Amino Transferase 632 U/L (5-37); Bilirubin Direct 0.3 mg/dL (0.0-0.5); Bilirubin Total 0.7 mg/dL (0.0-1.0); Blood Urea Nitrogen 13 mg/dL (9-16); Calcium 8.9 mg/dL (8.4-10.2); Carbon Dioxide 30 mmol/L (22-29); Chloride 105 mmol/L (96-108); Creatinine Clr Calc Pharmacy 86.8; Estimated Glomerular Filt Rate > 60; Glucose Random 96 mg/dL (60-115); Lipase 20 U/L (8-78); Potassium 3.7 mmol/L (3.3-5.1); Sodium 141 mmol/L (135-145); Total Protein 6.1 g/dL (6.5-8.0)
[2020-07-27 00:18] LABS: Glucose Urine UA NEG (NEG); Leukocyte Esterase Urine NEG (NEG); Nitrite Urine NEG (NEG); Specific Gravity - Urine 1.025 (1.005-1.025); Urine Blood 1+ (NEG); Urine Ketones NEG (NEG); Urine Protein NEG (NEG-TRACE)
[2020-07-27 00:21] LABS: Appearance Urine CLEAR; Color Urine YELLOW
[2020-07-27 00:24] LABS: Bacteria Urine 1+ /LPF; Squamous Epithelial Cell Urine 1+ /LPF
[2020-07-27 00:54] LABS: Amphetamine Screen Urine Not Detected (Not Detect); Barbiturates, Urine Not Detected (Not Detect); Benzodiazepines Screen Urine Not Detected (Not Detect); Cannabinoid Screen Urine POSITIVE (Not Detect); Cocaine Screen Urine POSITIVE (Not Detect); Opiate Screen Urine POSITIVE (Not Detect); Phencyclidine Screen Urine Not Detected (Not Detect)
[2020-07-27] MEDS: 0.9 % Sodium Chloride 1,000 ML 999 ML IVCONT (01:38)
[2020-07-27 02:19] VITALS: BMI 28.0
[2020-07-27 02:26] VITALS: BP 145/83; PULSE 52; RESP 18; TEMP 36.6; O2SAT 97
[2020-07-27] MEDS: Ampicillin Sodium/Sulbactam Na 3 GM in 0.9 % Sodium Chloride 100 ML IV ×2 (02:40→10:51)
[2020-07-27] MEDS: Enoxaparin Sodium 40 MG/0.4 ML SYRINGE SUBCUT (02:42)
[2020-07-27] MEDS: Doxycycline Hyclate 100 MG in 0.9 % Sodium Chloride 250 ML 166.67 MG IV (03:14)
[2020-07-27] MEDS: Lactated Ringers 1,000 ML 100 ML IVCONT ×2 (04:48→14:58)
--- NOTE | 2020-07-27 05:33 | P.HPHOSP_ITS ---
History of Present Illness Date of Service: 07/27/20 Chief Complaint: aspiration pna, hypoxic This is a 39-year-old male with past medical history of heroin abuse, who was admitted to the hospital on 07/24 after overdosing on heroin injection and found to have hypoxic respiratory failure secondary to aspiration pneumonia was being treated in the hospital with IV antibiotics as well as BOBY but decided to leave AMA on 07/26. Returns now after syncopizing witnessed by his uncle who was present at bedside. Patient currently has no complaints, no chest pain, no shortness of breath, no abdominal pain diarrhea constipation, no urinary symptoms and no lower extremity edema. He does not remember the events but his uncle says that he was standing when his syncopized but returned to consciousness about a minute later. On arrival To the ED hemodynamically stable with no significant abnormal vitals looked line Labs are significant for WBC count 7.4, hemoglobin of 13, BUN of 13, creatinine of 1.33 which significantly improved 2.57 on 07/24, AST of 632 from 489 the same day, mute ALT of 230, CPK of have 24,173 which has improved from 88,000 on 07/25. Chest x-ray shows marked improvement in appearance in the right lung with near complete clearing of previously dissected infiltrate Review of Systems Review of Systems: Yes all other systems are reviewed and are negative [facility] Medical History (Updated 07/27/20 @ 05:39 by Bryn Escalona MD) Heroin abuse Social History Household Members: Friend(s) Housing: Apartment Do you presently have visiting nurse or other home services: No Smoking Status: Former smoker Tobacco Type: Cigarette Cigarettes Per Day: 10 Smoked in Last 30 Days: Yes Second Hand Smoke Exposure: Yes Use of substances other than those prescribed or required for medical reasons: Yes Substance Use Type: Marijuana Advance Directives: No Advance Directives Information Provided: No Do you have thoughts of harming others: None Do you have a plan to hurt others: No Plan Recently lost weight without trying: No service: No Meds Allergies Allergy/AdvReac Type Severity Reaction Status Date / Time No Known Allergies Allergy Verified 07/24/20 18:13 Active Medications: Current Medications Generic Name Dose Route Start Last Admin Trade Name Freq PRN Reason Stop Dose Admin Acetaminophen 650 mg 07/27/20 01:53 Acetaminophen 325 Mg Tablet PO Q6H PRN Pain, Mild (Pain Scale 1-3) Docusate Sodium 100 mg 07/27/20 01:53 Docusate Sodium 100 Mg Capsule PO DAILY PRN Constipation Enoxaparin Sodium 40 mg 07/27/20 02:00 07/27/20 02:42 Enoxaparin Sodium 40 Mg/0.4 Ml Syringe SUBCUT 40 mg Q24H JONI Administration Hydroxyzine HCl 25 mg 07/27/20 01:53 Hydroxyzine Hcl 25 Mg Tablet PO Q6H PRN anxiety/restlessness Ampicillin Sodium/Sulbactam 100 mls @ 200 mls/hr 07/27/20 03:00 07/27/20 03:12 Sodium 3 gm/ Sodium Chloride IV Infused Q8H JONI Infusion Doxycycline Hyclate 100 mg/ 250 mls @ 166.67 mls/hr 07/27/20 02:00 07/27/20 04:49 Sodium Chloride IV Infused Q12H JONI Infusion Lactated Ringer's 1,000 mls @ 100 mls/hr 07/27/20 01:53 07/27/20 04:48 Lr IVCONT 100 mls/hr .Q10H JONI Administration Ondansetron HCl 4 mg 07/27/20 01:53 Ondansetron Hcl 4 Mg/2 Ml Vial IVPUSH Q8H PRN Nausea and Vomiting Sodium Chloride 3 ml 07/27/20 08:00 0.9 % Sodium Chloride Flush 3 Ml Syringe IVFLUSH QSHIFT [facility] Home Medications Medication Instructions Recorded Confirmed Last Taken Type Unobtainable 07/24/20 07/24/20 Unknown History Physical Exam Vital Signs and Narrative: Vital Signs: Last Vital Signs Temp 98 F 07/27/20 02:26 Pulse 52 07/27/20 02:26 Resp 18 07/27/20 02:26 BP 145/83 H 07/27/20 02:26 Pulse Ox 97 07/27/20 02:26 Body Mass Index 28.0 Const: General: cooperative and no acute distress Orientation/consciousne ss: patient oriented x3 Eyes: General: appearance normal, both eyes and all related structures Resp: Effort & Inspection: normal respiratory effort and able to speak in complete sentences Cardio: Rate: regular rate Rhythm: regular rhythm GI: Palpation (GI): Soft to palpation Auscultation: normal bowel sounds Skin: General skin exam: no rashes or lesions noted Neuro: General: patient oriented x3 Cognition (Neuro): normal cognition Extrem: General: Yes normal to inspection and Yes no pedal edema Results Labs CBC and Chem 7: 07/26/20 23:14 07/26/20 23:14 Labs: Laboratory Results - last 24 hr 07/26/20 07/26/20 07/26/20 23:14 23:14 23:14 MCV 79.9 L MCH 25.9 L MCHC 32.4 RDW 13.4 Plt Count 147 L MPV 11.6 Immature Gran % (Auto) 0.5 H Neut % (Auto) 69.4 Lymph % (Auto) 22.8 [place] % (Auto) 6.5 Eos % (Auto) 0.5 Baso % (Auto) 0.3 Lymph # (Auto) 1.7 [place] # (Auto) 0.5 Eos # (Auto) 0.0 Baso # (Auto) 0.0 Abs Immat Gran (auto) 0.04 H Absolute Neuts (auto) 5.1 Absolute Nucleated RBC 0.000 Nucleated RBC % (auto) 0.0 Anion Gap 10 L Estim Creat Clear Calc 86.8 Estimated GFR > 60 Random Glucose 96 Lactic Acid Calcium 8.9 D Total Bilirubin 0.7 Direct Bilirubin 0.3 AST 632 H ALT 230 H Alkaline Phosphatase 59 Total Creatine Kinase 54925 H Troponin I High Sens 76.9 H D B-Natriuretic Peptide 215 H Total Protein 6.1 L Albumin 3.9 Lipase 20 Urine Color Urine Appearance Urine pH Ur Specific [place] Urine Protein Urine Glucose (UA) Urine Ketones Urine Blood Urine Nitrite Ur Leukocyte Esterase Urine RBC Urine WBC Ur Squamous Epith Cells Urine Bacteria Urine Opiates Screen Ur Barbiturates Screen Ur Phencyclidine Scrn Ur Amphetamines Screen U Benzodiazepines Scrn Urine Cocaine Screen U Marijuana (THC) Screen COVID-19 ([facility]) COVID-19 [employer] Com 07/26/20 07/26/20 07/27/20 23:14 23:30 00:10 MCV MCH MCHC RDW Plt Count MPV Immature Gran % (Auto) Neut % (Auto) Lymph % (Auto) [place] % (Auto) Eos % (Auto) Baso % (Auto) Lymph # (Auto) [place] # (Auto) Eos # (Auto) Baso # (Auto) Abs Immat Gran (auto) Absolute Neuts (auto) Absolute Nucleated RBC Nucleated RBC % (auto) Anion Gap Estim Creat Clear Calc Estimated GFR Random Glucose Lactic Acid 1.1 Calcium Total Bilirubin Direct Bilirubin AST ALT Alkaline Phosphatase Total Creatine Kinase Troponin I High Sens B-Natriuretic Peptide Total Protein Albumin Lipase Urine Color YELLOW Urine Appearance CLEAR Urine pH 6.0 Ur Specific [place] 1.025 Urine Protein NEG Urine Glucose (UA) NEG Urine Ketones NEG Urine Blood 1+ H Urine Nitrite NEG Ur Leukocyte Esterase NEG Urine RBC 5-9 H Urine WBC 1-4 Ur Squamous Epith Cells 1+ Urine Bacteria 1+ Urine Opiates Screen Ur Barbiturates Screen Ur Phencyclidine Scrn Ur Amphetamines Screen U Benzodiazepines Scrn Urine Cocaine Screen U Marijuana (THC) Screen COVID-19 ([facility]) Negative COVID-19 [employer] Com See Note 07/27/20 00:10 MCV MCH MCHC RDW Plt Count MPV Immature Gran % (Auto) Neut % (Auto) Lymph % (Auto) [place] % (Auto) Eos % (Auto) Baso % (Auto) Lymph # (Auto) [place] # (Auto) Eos # (Auto) Baso # (Auto) Abs Immat Gran (auto) Absolute Neuts (auto) Absolute Nucleated RBC Nucleated RBC % (auto) Anion Gap Estim Creat Clear Calc Estimated GFR Random Glucose Lactic Acid Calcium Total Bilirubin Direct Bilirubin AST ALT Alkaline Phosphatase Total Creatine Kinase Troponin I High Sens B-Natriuretic Peptide Total Protein Albumin Lipase Urine Color Urine Appearance Urine pH Ur Specific [place] Urine Protein Urine Glucose (UA) Urine Ketones Urine Blood Urine Nitrite Ur Leukocyte Esterase Urine RBC Urine WBC Ur Squamous Epith Cells Urine Bacteria Urine Opiates Screen POSITIVE H Ur Barbiturates Screen Not Detected Ur Phencyclidine Scrn Not Detected Ur Amphetamines Screen Not Detected U Benzodiazepines Scrn Not Detected Urine Cocaine Screen POSITIVE H U Marijuana (THC) Screen POSITIVE H COVID-19 ([facility]) COVID-19 Clin Com Imaging Radiologist's Impressions: Impressions Chest X-Ray 07/26/20 22:51 IMPRESSION: Marked improvement in appearances in the right lung with near complete clearing of previously detected infiltrate. Assessment and Plan (1) Syncope: Status: Acute (2) Rhabdomyolysis: Status: Acute (3) Elevated troponin: Status: Acute (4) Pneumonia: Qualifiers: Aspiration pneumonia type: unspecified Laterality: right Lung location: upper lobe of lung Pneumonia type: aspiration pneumonia Qualified Code(s): J69.0 - Pneumonitis due to inhalation of food and vomit Problem details: pneumonia aspiration concern Status: Acute 39-year-old male with history of heroin abuse who initially presented to the hospital on 07 24 with aspiration pneumonia after overdosing on heroin left AMA on 07/26 returns today after syncopized in at home. # syncope - possibly vasovagal, versus secondary to hypoxia, versus seizure less likely versus cardiogenic less likely - will obtain orthostatic vitals although most likely normal as patient has been on aggressive IV fluids since the 5th grade BOBY - monitor on tele - if has recurrence, consider EEG # BOBY - improvement of his creatinine function - most likely secondary to to floor necrosis in the setting of rhabdomyolysis as well as prerenal secondary to dehydration due to heroin abuse - will continue with aggressive - IV fluids - follow BMP # rhabdomyolysis - improvement of a CPK - will continue aggressive IV fluids - trend CPK # aspiration pneumonia - improvement of the infiltrate on chest x-ray, not requiring oxygen any more - on latest infectious disease no recommended to continue Unasyn as well as add doxycycline - re-consult Infectious Disease DVT prophylaxis: Lovenox
[2020-07-27 07:47] VITALS: BP 117/79; PULSE 90; RESP 18; TEMP 36.7; O2SAT 95
[2020-07-27] MEDS: 0.9 % Sodium Chloride Flush 3 ML SYRINGE IVFLUSH (07:54)
[2020-07-27] MEDS: Sodium,Potassium Phosphates POWD.PACK 1 PACKET PO (09:12)
--- NOTE | 2020-07-27 11:28 | MHC.CM.PN ---
EMR REVIEWED, PT ADMITTED AFTER SYNCOPAL EPISODE W/PNA, CM MET W/PT WHO IS ALERT AND ORIENTED, REPORTS HE LIVES W/ROOMMATE AND IS INDEPENDENT W/ALL CARE, DENIES USE OF DME/HOME SERVICES, PT REPORTS HE HAS NO PCP AND AND HAS RECENTLY MOVED TO [place] FROM [place], PT DENIES KNOWING ADDRESS, PT PROVIDED W/PAMPHLET W/LIST OF PROVIDERS TO PICK A PCP. PT GIVEN EDUCATION AND OFFERED ASSISTANCE COMPLETING A HCP AND PT IS CURRENTLY DECLINING. PT WAS RECENTLY ADMITTED AFTER AN ACCIDENTAL HEROIN OD AND LEFT AMA, PT REPORTS HE IS INTERESTED IN MEDICATION ASSISTED TX, VIVITROL SPECIFICALLY AND HAS NO INTEREST IN INPT SA TX AT THIS TIME, HOSPITALIST AND RECOVERY NURSE AWARE. PCP: NONE HCP: NONE, DECLINED ASSISTANCE
[2020-07-27 11:33] VITALS: BP 138/81; PULSE 98; RESP 18; TEMP 36.6; O2SAT 97
--- NOTE | 2020-07-27 13:00 | MHC.RECOVRN ---
39 year old male presented to [facility] on 07/26 after leaving the hospital AMA earlier that day. Pt was dx with PNA initially on 07/24 after coming to [facility] after opioid overdose. Pt fainted at home and returned to the ED.? Pt subsequently readmitted for?PNA, syncope, rhabdomyolysis, and BOBY.?T/w met with pt in 362 after case management requested consult. Pt explained to t/w that he had been in recovery x 6 months and due to an issue being locked out of his car decided to obtain and use 2 bags heroin IV on 07/24. Pt was found by a friend and was administered a total of 10 mg Narcan IN.? Pt reports having received Vivitrol x 12 months, last injection on Apr 03, 2020. Pt very interested in restarting naltrexone. Pt is not interested in other recovery resources at this time.? Appointment was made at the [facility] for August 01 at 2:30PM. Pt was given t/w card if any issues arise?or if pt would like to discuss recovery further. CM aware.?
--- NOTE | 2020-07-27 13:13 | MHC.CM.PN ---
Addendum entered by Catina Mancuso RN 07/27/20 14:13: CM SPOKE W/PT'S NURSE/HOSPITALIST AND PER HOSPITALIST PT HAS AGREED TO STAY INPT AND WILL NOT D/C TODAY. Original Note: PT DISCHARGING TODAY HOME SELF-CARE W/APPT AT THE [facility] ON 08/01/20 AT 2:30PM FOR MED ASSISTED TX, PT AWARE OF APPT, PT CONT'S TO DENY NEED FOR CARE TEAM, INPT SA TX AND DENIES SUICIDAL IDEATION AND HX OF SI OR SUICIDE ATTEMPTS. FAMILY/FRIEND TO TRANSPORT.
--- NOTE | 2020-07-27 14:01 | P.EN_ITS ---
Event Note Date of Service: 07/27/20 Event Note: Patient seen examined, chart reviewed, case discussed with infecti ous disease Dr. Barbara March. On examination patient awake alert offers no acute complaint Tele monitor showed bradycardia heart rate drop down to 35 Blood cultures Streptococcus viridans unlikely pathogen Assessment and plan Syncope BOBY Rhabdo Transaminitis Contaminated blood culture Patient antibiotic adjusted as per ID, continue IV fluid follow renal function liver enzymes and CPK, patient seen by recovery nurse for illicit drug use.
[2020-07-27 16:00] VITALS: BP 122/72; PULSE 63; RESP 16; TEMP 36.6; O2SAT 95
--- NOTE | 2020-07-27 17:17 | PC.NURSE ---
Pt told this RN he wants to leave AMA. This RN educated pt on the risks of leaving AMA and pt verbally understands. This RN made Dr. Arredondo aware. Pt signed AMA paperwork with second RN witness. IV removed, tele monitor removed.
--- NOTE | 2020-07-28 15:46 | P.DS_ITS ---
DS: Providers Provider Date of Service: 07/28/20 Date of admission: 07/27/20 00:31 Primary care physician: Unknown Physician Consults: 07/27/20 05:38 Consult to Infectious Diseases Routine Consulting Provider: Brianna March Reason for consultation: aspiration PNA Has provider been notified: No DS: Diagnosis Discharge Diagnosis (1) Syncope: Status: Acute (2) Rhabdomyolysis: Status: Acute (3) Elevated troponin: Status: Acute (4) Pneumonia: Status: Acute Problem details: pneumonia aspiration concern DS: Medications Discharge Medications Home Medications: Home Medications Medication Instructions Recorded Confirmed No Known Home Meds 07/27/20 07/27/20 DS: Summary Hospital Course Hospital Course: History of presenting illness 39-year-old male with past medical history of heroin abuse, who was admitted to the hospital on 07/24 after overdosing on heroin injection and found to have h ypoxic respiratory failure secondary to aspiration pneumonia was being treated in the hospital with IV antibiotics as well as BOBY but decided to leave AMA on 07/26. Returns now after syncopizing witnessed by his uncle who was present at bedside. Patient currently has no complaints, no chest pain, no shortness of breath, no abdominal pain diarrhea constipation, no urinary symptoms and no lower extremity edema. He does not remember the events but his uncle says that he was standing when his syncopized but returned to consciousness about a minute later. On arrival To the ED hemodynamically stable with no significant abnormal vitals looked line Labs are significant for WBC count 7.4, hemoglobin of 13, BUN of 13, creatinine of 1.33 which significantly improved 2.57 on 07/24, AST of 632 from 489 the same day, mute ALT of 230, CPK of have 24,173 which has improved from 88,000 on 07/25. Chest x-ray shows marked improvement in appearance in the right lung with near complete clearing of previously dissected infiltrate Hospital course Syncope likely due to heroin intoxication, orthostatic studies were unremarkable, no arrhythmia is noted strongly advised to abstain from illicit drug use, patient refused to stay for care team evaluation Pneumonia concern for aspiration pneumonia patient treated with IV antibiotics and plan was to treat with by mouth doxycycline however patient adamant to leave the hospital Rhabdomyolysis CPK trending down recommend to drink plenty of fluids Acute kidney injury resolved Bacteremia Streptococcus viridans unlikely pathogen Transaminitis likely due to illicit drug use Time Spent with Patient Time attestation: Total time spent providing and/or coordinating discharge servi giselle: Discharge coordination time: Greater than 30 minutes Physical Exam Vital Signs: Vital Signs: Last Vital Signs Temp 97.8 F 07/27/20 16:00 Pulse 63 07/27/20 16:00 Resp 16 07/27/20 16:00 BP 122/72 07/27/20 16:00 Pulse Ox 95 07/27/20 16:00 Body Mass Index 28.0 Referred to examination from history and physical done early this morning DS: Data Data Completed and Pending Labs on day of discharge: Preliminary micro results at discharge 07/26/20 23:30 Blood Culture - Preliminary Blood - Venous No growth after 24 hours. 07/26/20 23:14 Blood Culture - Preliminary Blood - Venous No growth after 24 hours. Discharge Plan Discharge Patient Disposition: Left Against Medical Advice Referrals: Brianna March MD [Physician] - 3-5 Days ([facility]- YOU WILL BE MEETING WITH A NURSE INITIALLY. July AT 2:30PM ) Physician,Unknown [Primary Care Provider] - Discharge Medications: No Action No Known Home Meds RF: 0 Discharge Orders: Discharge Order (Routine); Ordered 07/28/20 Ordered By: Kavitha Arredondo Care Plan Goals: Patient admitted for syncope/heroin abuse/pneumonia recommended patient to stay in-house for antibiotic treatment and IV fluid however patient is adamant to leave the hospital, he left hospital yesterday and returned overnight and wishes to leave again today patient is awake alert and understand consequences of leaving hospital including sepsis and Health Concerns: Illicit drug use/pneumonia/ syncope a strongly recommend to abstain from illicit drug use/drink plenty of fluids Plan of Treatment: Patient left against medical advice Assessment: see dc summary Discharge Date/Time: 07/27/20 17:20
== END 2020-07-27 17:20 | disposition left against medical advice (07) | DRG 137 ==
LOC: HO.ED 07-27 00:33 → HO.EDOVER 07-27 00:51 → HO.S3 07-27 01:33
PROVIDERS: Admitting Provider Internal Medicine; Emergency Provider Emergency Medicine; Visit Provider Hospitalist
DX: J69.0 Pneumonitis due to inhalation of food and vomit (principal); N17.9 Acute kidney failure, unspecified; M62.82 Rhabdomyolysis; Z20.822 Contact with and (suspected) exposure to COVID-19; R74.01 Elevation of levels of liver transaminase levels; F11.10 Opioid abuse, uncomplicated; Z87.891 Personal history of nicotine dependence
CPT/HCPCS: 36415; 71045; 80048; 80076; 80307; 81001; 82550; 83605; 83690; 83880; 84484; 85025; 87040; 87635; 93005; 96360; 96361; 99285; J0295; J1650

== ENCOUNTER 2020-07-30 19:42 | Emergency (ER) | payer MEDICAID, SELFPAY ==
--- NOTE | ~2020-07-30 | XR_ITS ---
EXAMINATION: XR CHEST CLINICAL INFORMATION: Syncope COMPARISON: None TECHNIQUE: Frontal view of the chest was obtained. FINDINGS: No significant abnormality is noted involving the heart, lungs, mediastinum, bony thorax or soft tissues. XR/XR chest 1V IMPRESSION: Unremarkable examination.
--- NOTE | 2020-07-30 19:49 | ECG_ITS ---
Test Reason : OVERDOSED Blood Pressure : / mmHG Vent. Rate : 085 BPM Atrial Rate : 085 BPM P-R Int : 152 ms QRS Dur : 088 ms QT Int : 380 ms P-R-T Axes : 058 072 043 degrees QTc Int : 452 ms Normal sinus rhythm Normal ECG When compared with ECG of 26-JUL-2020 22:57, Vent. rate has increased BY 34 BPM Referred By: Marii Tafoya Electronically Signed By:TRICIA DARLING
[2020-07-30 19:53] VITALS: BP 139/83; PULSE 97; RESP 18; TEMP 36.7; O2SAT 100; BMI 29.2
--- NOTE | 2020-07-30 20:06 | ED_ITS ---
HPI - Overdose General Stated Complaint: Unresponsive/OD Time Seen by Provider: 07/30/20 19:48 Source: patient and family (Uncle) Mode of arrival: ambulatory Limitations: no limitations History of Present Illness HPI Narrative: A 39-year-old male known history of IV drug abuser presented with his uncle after was found unresponsive and cyanotic. Patient was hospitalized recently and signed against medical advise. Patient decline using any drugs today, patient was given Narcan in the emergency department 4 mg and patient responded to Narcan and started to have spontaneous breathing, patient still declined using any drugs today. Patient declined being depressed or SI or HI. Patient having no symptoms. Related Data Home Medications Medication Instructions Recorded Confirmed No Known Home Meds 07/27/20 07/30/20 Allergies Allergy/AdvReac Type Severity Reaction Status Date / Time No Known Allergies Allergy Verified 07/24/20 18:13 Review of Systems Review of Systems: All other systems are reviewed and are negative Constitutional: Reports as per HPI and Reports no additional constitutional complaints Eyes: Reports as per HPI and Reports no additional eye complaints Reports system reviewed and no additional complaints, except as documented Cardiovascular: Reports as per HPI and Reports no additional cardiovascular complaints Respiratory: Reports as per HPI and Reports no additional respiratory complaints Gastrointestinal: Reports as per HPI and Reports no additional gastrointestinal complaints Genitourinary: Reports no additional female genitourinary complaints Musculoskeletal: Reports no additional musculoskeletal complaints Skin/Breast: Reports system reviewed and no additional complaints, except as do cu Psychiatric: Reports no additional psychiatric complaints Endocrine: Reports no additional endocrine complaints Hematologic/Lymphatic: Reports no additional hematologic/lymphatic complaints Allergic/Immunologic: Reports no additional allergic/immunologic complaints Reports system reviewed and no additional complaints, except as documented and Reports Abnormal speech present [facility] Past Medical History Medical History Heroin abuse Social History Social History Household Members: Friend(s) Housing: Apartment Smoking Status: Former smoker Tobacco Type: Cigarette Cigarettes Per Day: 10 Second Hand Smoke Exposure: Yes Substance Use Type: Marijuana Advance Directives: No Advance Directives Information Provided: Yes service: No Current occupational status: unemployed Physical Exam Vital Signs: Vital Signs: Last Vital Signs Temp 98.0 F 07/30/20 21:56 Pulse 77 07/30/20 21:56 Resp 16 07/30/20 21:56 BP 136/88 07/30/20 21:56 Pulse Ox 94 07/30/20 21:56 Body Mass Index 29.2 Vital signs have been reviewed as appeared to be correct. Blood pressure normal. Heart rate normal. Respiration rate normal. Temperature normal. Oxygen saturation normal. Appearance: Alert. Oriented X3. No acute distress. Head: Normal external exam. Normocephalic. Atraumatic. No [place] signs noted. No raccoon eyes noted Eyes: PERRLA. EOMI. Conjunctiva and sclera normal. Eyelids normal. ENT: TM's Normal. Pharynx normal. Uvula midline. Moist mucous membranes. No trismus noted. No drooling noted. No muffled voice noted. Neck: Normal inspection. Neck supple. FROM. No adenopathy. Thyroid Normal. No meningeal signs. No neck mass noted. CVS: Normal heart rate and rhythm. Heart sound normal. No murmurs noted. Pulses normal throughout. Respiratory: No respiratory distress. Painless inspiration. Breath sounds normal. No wheezes/rales/rhonchi noted. Chest nontender. No accessory muscle usage noted or decreased air movement noted. Abdomen: Soft and nontender. Bowel sounds normal in all 4 quadrants. No distention noted. No organomegaly noted. No visible injury noted. Back: No CVA tenderness. Full range of motion noted. Skin: Skin warm and dry. Normal skin color. Normal skin turgor. No rashes/lesions/lacerations noted. Extremities: No lower extremity edema. Extremities exhibit normal range of motion. Extremities nontender. Neuro: Oriented X 3. No motor deficit. No sensory deficit. Reflexes normal. Course Course Course Narrative: Assessment and plan. 39-year-old male history of IV drug abuse history of recent hospitalization and multiple sign against medical advise, patient was found by his uncle unresponsive brought in here unresponsive and apneic, patient responded well to Narcan given in the emergency department patient had spontaneous breathing. Patient declined using any drugs however urine tox is revealing opiates in the urine which would explain the patient's symptoms. MDM - Overdose Lab Data Attestation: I reviewed the patient's lab results. Result diagrams: 07/30/20 20:09 07/30/20 20:09 Labs: Lab Results 07/30/20 07/30/20 07/30/20 Range/Units 20:09 20:09 20:09 WBC 8.3 (4.8-10.8) X10*3/uL RBC 5.04 (4.60-5.80) X10*6/uL Hgb 12.9 L (14.0-18.0) g/dl Hct 40.9 L (42-52) % MCV 81.2 (80-98) fL MCH 25.6 L (27.0-33.0) pg MCHC 31.5 (31.0-36.0) g/dl RDW 13.8 (11.0-16.0) % Plt Count 179 (160-400) X10*3/uL MPV 11.8 (9.4-12.4) fL Immature Gran % (Auto) 1.4 H (0.0-0.4) % Neut % (Auto) 53.0 (45-73) % Lymph % (Auto) 37.3 (20-40) % [place] % (Auto) 7.0 (2-11) % Eos % (Auto) 1.1 (0-4) % Baso % (Auto) 0.2 (0-2) % Lymph # (Auto) 3.1 (1.2-4.9) X10*3/uL [place] # (Auto) 0.6 (0.1-1.2) X10*3/uL Eos # (Auto) 0.1 (0.0-0.4) X10*3/uL Baso # (Auto) 0.0 (0.0-0.2) X10*3/uL Abs Immat Gran (auto) 0.12 H (0.00-0.03) X10*3/uL Absolute Neuts (auto) 4.4 (2.0-8.3) X10*3/uL Absolute Nucleated RBC 0.000 (0.0-0.012) X10*3/uL Nucleated RBC % (auto) 0.0 (0.0-0.2) /100WBC Sodium 143 (135-145) mmol/L Potassium 3.6 (3.3-5.1) mmol/L Chloride 104 (96-108) mmol/L Carbon Dioxide 25 (22-29) mmol/L Anion Gap 18 (12-20) BUN 16 (9-16) mg/dL Creatinine 1.41 H (0.5-1.4) mg/dL Estim Creat Clear Calc 71.4 Estimated GFR 56 Random Glucose 129 H (60-115) mg/dL Lactic Acid (0.5-2.0) mmol/L Lactic Acid Fup @ 2Hr (0.5-2.0) mmol/L Calcium 9.3 (8.4-10.2) mg/dL Total Bilirubin 0.5 (0.0-1.0) mg/dL Direct Bilirubin 0.2 (0.0-0.5) mg/dL AST 152 H (5-37) U/L ALT 135 H (0-40) U/L Alkaline Phosphatase 59 (39-117) U/L Troponin I High Sens (<3.5-35.0) ng/L B-Natriuretic Peptide Cancelled Total Protein 6.6 (6.5-8.0) g/dL Albumin 4.0 (3.5-5.0) g/dL Lipase 24 (8-78) U/L Urine Color Urine Appearance Urine pH (5.0-8.0) Ur Specific [place] (1.005-1.025) Urine Protein (NEG-TRACE) MG/DL Urine Glucose (UA) (NEG) MG/DL Urine Ketones (NEG) MG/DL Urine Blood (NEG) Urine Nitrite (NEG) Ur Leukocyte Esterase (NEG) Urine Opiates Screen (Not Detect) Ur Barbiturates Screen (Not Detect) Ur Phencyclidine Scrn (Not Detect) Ur Amphetamines Screen (Not Detect) U Benzodiazepines Scrn (Not Detect) Urine Cocaine Screen (Not Detect) U Marijuana (THC) Screen (Not Detect) COVID-19 ([facility]) (Negative) COVID-19 Clin Com 07/30/20 07/30/20 07/30/20 Range/Units 20:09 20:09 20:09 WBC (4.8-10.8) X10*3/uL RBC (4.60-5.80) X10*6/uL Hgb (14.0-18.0) g/dl Hct (42-52) % MCV (80-98) fL MCH (27.0-33.0) pg MCHC (31.0-36.0) g/dl RDW (11.0-16.0) % Plt Count (160-400) X10*3/uL MPV (9.4-12.4) fL Immature Gran % (Auto) (0.0-0.4) % Neut % (Auto) (45-73) % Lymph % (Auto) (20-40) % [place] % (Auto) (2-11) % Eos % (Auto) (0-4) % Baso % (Auto) (0-2) % Lymph # (Auto) (1.2-4.9) X10*3/uL [place] # (Auto) (0.1-1.2) X10*3/uL Eos # (Auto) (0.0-0.4) X10*3/uL Baso # (Auto) (0.0-0.2) X10*3/uL Abs Immat Gran (auto) (0.00-0.03) X10*3/uL Absolute Neuts (auto) (2.0-8.3) X10*3/uL Absolute Nucleated RBC (0.0-0.012) X10*3/uL Nucleated RBC % (auto) (0.0-0.2) /100WBC Sodium (135-145) mmol/L Potassium (3.3-5.1) mmol/L Chloride (96-108) mmol/L Carbon Dioxide (22-29) mmol/L Anion Gap (12-20) BUN (9-16) mg/dL Creatinine (0.5-1.4) mg/dL Estim Creat Clear Calc Estimated GFR Random Glucose (60-115) mg/dL Lactic Acid 4.1 H* (0.5-2.0) mmol/L Lactic Acid Fup @ 2Hr (0.5-2.0) mmol/L Calcium (8.4-10.2) mg/dL Total Bilirubin (0.0-1.0) mg/dL Direct Bilirubin (0.0-0.5) mg/dL AST (5-37) U/L ALT (0-40) U/L Alkaline Phosphatase (39-117) U/L Troponin I High Sens 9.5 D (<3.5-35.0) ng/L B-Natriuretic Peptide 65 Total Protein (6.5-8.0) g/dL Albumin (3.5-5.0) g/dL Lipase (8-78) U/L Urine Color Urine Appearance Urine pH (5.0-8.0) Ur Specific [place] (1.005-1.025) Urine Protein (NEG-TRACE) MG/DL Urine Glucose (UA) (NEG) MG/DL Urine Ketones (NEG) MG/DL Urine Blood (NEG) Urine Nitrite (NEG) Ur Leukocyte Esterase (NEG) Urine Opiates Screen (Not Detect) Ur Barbiturates Screen (Not Detect) Ur Phencyclidine Scrn (Not Detect) Ur Amphetamines Screen (Not Detect) U Benzodiazepines Scrn (Not Detect) Urine Cocaine Screen (Not Detect) U Marijuana (THC) Screen (Not Detect) COVID-19 ([facility]) Negative (Negative) COVID-19 Clin Com See Note 07/30/20 07/30/20 07/30/20 Range/Units 21:46 21:46 21:46 WBC (4.8-10.8) X10*3/uL RBC (4.60-5.80) X10*6/uL Hgb (14.0-18.0) g/dl Hct (42-52) % MCV (80-98) fL MCH (27.0-33.0) pg MCHC (31.0-36.0) g/dl RDW (11.0-16.0) % Plt Count (160-400) X10*3/uL MPV (9.4-12.4) fL Immature Gran % (Auto) (0.0-0.4) % Neut % (Auto) (45-73) % Lymph % (Auto) (20-40) % [place] % (Auto) (2-11) % Eos % (Auto) (0-4) % Baso % (Auto) (0-2) % Lymph # (Auto) (1.2-4.9) X10*3/uL [place] # (Auto) (0.1-1.2) X10*3/uL Eos # (Auto) (0.0-0.4) X10*3/uL Baso # (Auto) (0.0-0.2) X10*3/uL Abs Immat Gran (auto) (0.00-0.03) X10*3/uL Absolute Neuts (auto) (2.0-8.3) X10*3/uL Absolute Nucleated RBC (0.0-0.012) X10*3/uL Nucleated RBC % (auto) (0.0-0.2) /100WBC Sodium (135-145) mmol/L Potassium (3.3-5.1) mmol/L Chloride (96-108) mmol/L Carbon Dioxide (22-29) mmol/L Anion Gap (12-20) BUN (9-16) mg/dL Creatinine (0.5-1.4) mg/dL Estim Creat Clear Calc Estimated GFR Random Glucose (60-115) mg/dL Lactic Acid (0.5-2.0) mmol/L Lactic Acid Fup @ 2Hr (0.5-2.0) mmol/L Calcium (8.4-10.2) mg/dL Total Bilirubin (0.0-1.0) mg/dL Direct Bilirubin (0.0-0.5) mg/dL AST (5-37) U/L ALT (0-40) U/L Alkaline Phosphatase (39-117) U/L Troponin I High Sens (<3.5-35.0) ng/L B-Natriuretic Peptide Total Protein (6.5-8.0) g/dL Albumin (3.5-5.0) g/dL Lipase (8-78) U/L Urine Color YELLOW Cancelled Urine Appearance CLEAR Cancelled Urine pH 6.0 Cancelled (5.0-8.0) Ur Specific [place] 1.025 Cancelled (1.005-1.025) Urine Protein TRACE Cancelled (NEG-TRACE) MG/DL Urine Glucose (UA) NEG Cancelled (NEG) MG/DL Urine Ketones NEG Cancelled (NEG) MG/DL Urine Blood NEG Cancelled (NEG) Urine Nitrite NEG Cancelled (NEG) Ur Leukocyte Esterase NEG Cancelled (NEG) Urine Opiates Screen POSITIVE H (Not Detect) Ur Barbiturates Screen Not Detected (Not Detect) Ur Phencyclidine Scrn Not Detected (Not Detect) Ur Amphetamines Screen Not Detected (Not Detect) U Benzodiazepines Scrn Not Detected (Not Detect) Urine Cocaine Screen POSITIVE H (Not Detect) U Marijuana (THC) Screen POSITIVE H (Not Detect) COVID-19 ([facility]) (Negative) COVID-19 Clin Com 07/30/20 Range/Units 22:33 WBC (4.8-10.8) X10*3/uL RBC (4.60-5.80) X10*6/uL Hgb (14.0-18.0) g/dl Hct (42-52) % MCV (80-98) fL MCH (27.0-33.0) pg MCHC (31.0-36.0) g/dl RDW (11.0-16.0) % Plt Count (160-400) X10*3/uL MPV (9.4-12.4) fL Immature Gran % (Auto) (0.0-0.4) % Neut % (Auto) (45-73) % Lymph % (Auto) (20-40) % [place] % (Auto) (2-11) % Eos % (Auto) (0-4) % Baso % (Auto) (0-2) % Lymph # (Auto) (1.2-4.9) X10*3/uL [place] # (Auto) (0.1-1.2) X10*3/uL Eos # (Auto) (0.0-0.4) X10*3/uL Baso # (Auto) (0.0-0.2) X10*3/uL Abs Immat Gran (auto) (0.00-0.03) X10*3/uL Absolute Neuts (auto) (2.0-8.3) X10*3/uL Absolute Nucleated RBC (0.0-0.012) X10*3/uL Nucleated RBC % (auto) (0.0-0.2) /100WBC Sodium (135-145) mmol/L Potassium (3.3-5.1) mmol/L Chloride (96-108) mmol/L Carbon Dioxide (22-29) mmol/L Anion Gap (12-20) BUN (9-16) mg/dL Creatinine (0.5-1.4) mg/dL Estim Creat Clear Calc Estimated GFR Random Glucose (60-115) mg/dL Lactic Acid (0.5-2.0) mmol/L Lactic Acid Fup @ 2Hr 0.9 (0.5-2.0) mmol/L Calcium (8.4-10.2) mg/dL Total Bilirubin (0.0-1.0) mg/dL Direct Bilirubin (0.0-0.5) mg/dL AST (5-37) U/L ALT (0-40) U/L Alkaline Phosphatase (39-117) U/L Troponin I High Sens (<3.5-35.0) ng/L B-Natriuretic Peptide Total Protein (6.5-8.0) g/dL Albumin (3.5-5.0) g/dL Lipase (8-78) U/L Urine Color Urine Appearance Urine pH (5.0-8.0) Ur Specific [place] (1.005-1.025) Urine Protein (NEG-TRACE) MG/DL Urine Glucose (UA) (NEG) MG/DL Urine Ketones (NEG) MG/DL Urine Blood (NEG) Urine Nitrite (NEG) Ur Leukocyte Esterase (NEG) Urine Opiates Screen (Not Detect) Ur Barbiturates Screen (Not Detect) Ur Phencyclidine Scrn (Not Detect) Ur Amphetamines Screen (Not Detect) U Benzodiazepines Scrn (Not Detect) Urine Cocaine Screen (Not Detect) U Marijuana (THC) Screen (Not Detect) COVID-19 ([facility]) (Negative) COVID-19 Clin Com Imaging Data Chest x-ray: Radiologist's impression: No acute pathology. ECG Data Interpretation: Normal sinus rhythm at 85 beats per minutes, normal axis deviation, normal intervals, no ST-T changes. Discharge Plan Discharge Clinical Impression: Polysubstance abuse Drug overdose Qualifiers: Encounter type: initial encounter Injury intent: accidental or unintentional Qualified Code(s): T50.901A - Poisoning by unspecified drugs, medicaments and biological substances, accidental (unintentional), initial encounter Patient Disposition: Home, Self-Care Instructions: Polysubstance Abuse (ED) Prescriptions: No Action No Known Home Meds RF: 0 Referrals: Physician,Unknown [Primary Care Provider] - 2 days
[2020-07-30] MEDS: 0.9 % Sodium Chloride 1,000 ML 999 ML IVCONT (20:16)
[2020-07-30 20:18] VITALS: BP 150/94; PULSE 77; RESP 18; TEMP 36.7; O2SAT 98
[2020-07-30 20:18] LABS: MANUAL DIFF FLAG NO
[2020-07-30 20:20] LABS: Basophils Percent Auto 0.2 % (0-2); Eosinophils Absolute Auto 0.1 X10*3/uL (0.0-0.4); Eosinophils Percent Auto 1.1 % (0-4); Hematocrit 40.9 % (42-52); Hemoglobin 12.9 g/dl (14.0-18.0); Imm Gran Abs Auto 0.12 X10*3/uL (0.00-0.03); Imm Gran Pct Auto 1.4 % (0.0-0.4); Lymphocytes Absolute Auto 3.1 X10*3/uL (1.2-4.9); Lymphocytes Percent Auto 37.3 % (20-40); Mean Corpuscular HGB Conc 31.5 g/dl (31.0-36.0); Mean Corpuscular Hemoglobin 25.6 pg (27.0-33.0); Mean Corpuscular Volume 81.2 fL (80-98); Mean Platelet Volume 11.8 fL (9.4-12.4); Monocytes Absolute Auto 0.6 X10*3/uL (0.1-1.2); Neutrophils Absolute Auto 4.4 X10*3/uL (2.0-8.3); Platelet Count 179 X10*3/uL (160-400); Red Blood Count 5.04 X10*6/uL (4.60-5.80); Red Cell Distribution Width 13.8 % (11.0-16.0); White Blood Count 8.3 X10*3/uL (4.8-10.8)
[2020-07-30 20:37] LABS: COVID-19 Test Negative (Negative)
[2020-07-30 20:46] LABS: Alanine Aminotransferase 135 U/L (0-40); Alkaline Phosphatase 59 U/L (39-117); Anion Gap 18 (12-20); Aspartate Amino Transferase 152 U/L (5-37); Bilirubin Direct 0.2 mg/dL (0.0-0.5); Bilirubin Total 0.5 mg/dL (0.0-1.0); Blood Urea Nitrogen 16 mg/dL (9-16); Calcium 9.3 mg/dL (8.4-10.2); Carbon Dioxide 25 mmol/L (22-29); Chloride 104 mmol/L (96-108); Creatinine Clr Calc Pharmacy 71.4; Estimated Glomerular Filt Rate 56; Glucose Random 129 mg/dL (60-115); Lipase 24 U/L (8-78); Potassium 3.6 mmol/L (3.3-5.1); Sodium 143 mmol/L (135-145); Total Protein 6.6 g/dL (6.5-8.0)
[2020-07-30 21:02] LABS: B Type Natriuretic Peptide 65 pg/mL (<100); Troponin-I High Sensitivity 9.5 ng/L (<3.5-35.0)
[2020-07-30 21:54] LABS: Glucose Urine UA NEG (NEG); Leukocyte Esterase Urine NEG (NEG); Nitrite Urine NEG (NEG); Specific Gravity - Urine 1.025 (1.005-1.025); Urine Blood NEG (NEG); Urine Ketones NEG (NEG); Urine Protein TRACE MG/DL (NEG-TRACE)
[2020-07-30 21:56] VITALS: BP 136/88; PULSE 77; RESP 16; TEMP 36.7; O2SAT 94
[2020-07-30 21:56] LABS: Appearance Urine CLEAR; Color Urine YELLOW
[2020-07-30 22:14] LABS: Reflex Lactate? Lactic Acid Added
[2020-07-30 22:41] LABS: Amphetamine Screen Urine Not Detected (Not Detect); Barbiturates, Urine Not Detected (Not Detect); Benzodiazepines Screen Urine Not Detected (Not Detect); Cannabinoid Screen Urine POSITIVE (Not Detect); Cocaine Screen Urine POSITIVE (Not Detect); Opiate Screen Urine POSITIVE (Not Detect); Phencyclidine Screen Urine Not Detected (Not Detect)
[2020-07-30 23:05] LABS: ~Lactic Acid-LAB USE ONLY 0.9 mmol/L (0.5-2.0)
[2020-07-31 00:34] LABS: Lactic Acid 4.1 mmol/L (0.5-2.0)
== END 2020-07-30 23:42 | disposition home or self-care (01) ==
PROVIDERS: Emergency Provider Emergency Medicine
DX: T40.5X1A Poisoning by cocaine, accidental (unintentional), initial encounter (principal); T40.1X1A Poisoning by heroin, accidental (unintentional), initial encounter; T40.7X1A Poisoning by cannabis (derivatives), accidental (unintentional), initial encounter; R40.4 Transient alteration of awareness; Y92.9 Unspecified place or not applicable; F17.210 Nicotine dependence, cigarettes, uncomplicated; F19.120 Other psychoactive substance abuse with intoxication, uncomplicated; Z20.822 Contact with and (suspected) exposure to COVID-19
CPT/HCPCS: 36415; 71045; 80048; 80076; 80307; 81003; 83605; 83690; 83880; 84484; 85025; 87040; 87635; 93005; 96360; 99283; 99284

== ENCOUNTER → 2020-08-08 09:49 | Outpatient (BNVA) | payer MEDICAID, SELFPAY | PROVIDERS: Visit Provider Internal Medicine | DX: T40.1X1A Poisoning by heroin, accidental (unintentional), initial encounter (principal); J69.0 Pneumonitis due to inhalation of food and vomit | CPT/HCPCS: 80305; 99202 ==

== ENCOUNTER 2020-08-15 10:46 | Outpatient (REF) | payer MEDICAID, SELFPAY ==
[2020-08-18 15:13] LABS: Norfentanyl, Ur >500.0 ng/mL (<0.5)
[2020-08-19 15:12] LABS: Buprenorphine >1000 ng/mL; Norbuprenorphine 22 ng/mL
== END 2020-08-15 10:47 | disposition home or self-care (01) ==
LOC: HO.LAB 10:46
PROVIDERS: Visit Provider Internal Medicine
DX: Z51.81 Encounter for therapeutic drug level monitoring (principal); F11.99 Opioid use, unspecified with unspecified opioid-induced disorder; Z79.899 Other long term (current) drug therapy
CPT/HCPCS: 80305; 80348; 80354; 99211